=== PATIENT | female | born 1990 | race African-American/Black ===

== ENCOUNTER 2017-04-25 21:39 | Emergency (ER) | payer MEDICAID, OTHER ==
[~2017-04-25] VITALS: Ht 172.7 cm; Wt 81.6 kg
[~2017-04-25 21:39] MED LIST: ALBU8.5H5 INH; DICY10CA60 PO; HYDR-3498 PO; IBUP-1542 PO; ONDA4TAB35 PO
[2017-04-25 21:56] VITALS: Ht 172.7 cm; Wt 81.6 kg
[2017-04-25] MEDS ORDERED: morphine 4 MG/ML VIAL IV STA (22:43)
[2017-04-25] MEDS ORDERED: SOD CHLORIDE 0.9% 1,000 ML IV STA (22:43)
[2017-04-25] MEDS ORDERED: ONDANSETRON 4 MG INJ IV STA (22:43)
[2017-04-26 00:11] LABS: ADD SCAN DIFF NO
[2017-04-26] MEDS ORDERED: morphine 4 MG/ML VIAL IV STA (00:21)
[2017-04-26 00:22] LABS: ABNORMAL IP MESSAGE 1; BASOPHIL # 0.1 10^3/ul (0.0-0.1); BASOPHILS % 0.9 % (0.0-2.0); EOSINOPHILS # 0.1 10^3/ul (0.0-0.5); EOSINOPHILS % 1.7 % (0.0-7.0); HEMATOCRIT 27.2 % (37.0-47.0); HEMOGLOBIN 7.3 g/dl (12.0-16.0); LYMPHOCYTES # 2.8 10^3/ul (0.8-2.9); LYMPHOCYTES % 43.3 % (15.0-51.0); MEAN CORPUSCULAR HEMOGLOBIN 16.4 pg (29.0-33.0); MEAN CORPUSCULAR HGB CONC 26.8 g/dl (32.0-37.0); MEAN CORPUSCULAR VOLUME 61.3 fl (82.0-101.0); MONOCYTE # 0.4 10^3/ul (0.3-0.9); MONOCYTES % 6.5 % (0.0-11.0); NEUTROPHIL # 3.1 10^3/ul (1.6-7.5); NEUTROPHILS % 47.4 % (39.0-77.0); PLATELET COUNT 495 10^3/UL (140-415); RED BLOOD COUNT 4.44 10^6/ul (4.20-5.40); RED CELL DISTRIBUTION WIDTH 23.5 % (11.5-14.5); WHITE BLOOD COUNT 6.5 10^3/ul (4.8-10.8)
--- NOTE | 2017-04-26 00:31 | RADRPT ---
PROCEDURE: US Pelvis. CLINICAL INDICATION: Left lower quadrant pain TECHNIQUE: Multiple sonographic images of the pelvis were obtained utilizing a transabdominal only technique. The images were reviewed on a PACS workstation. COMPARISON: CT abdomen and pelvis 11/12/2015. Ultrasound 10/12/2015 FINDINGS: Uterus: Normal in size, contour and echogenicity with no evidence for myometrial masses. Size is est imated at 9.8 x 5.3 x 4.8 cm. Cervix: No abnormalities of significance are seen. Endometrium: Normal in thickness; 2.3 mm. Right ovary / adnexa: Not visualize compatible with the provided history of oophorectomy. Left ovary/adnexa: Normal in size estimated at 6 x 4.9 x 4 cm. No evidence for solid masses, normal blood flow on Doppler interrogation. Cyst within the ovary measures 3.4 x 3.4 x 3.1 cm, decreased i n size from the prior CT of 11/12/2015 at which time it measured 3.8 cm. Cul-de-sac: No evidence of free fluid. RPTAT:HJJR IMPRESSION: 1. Left ovarian cyst of approximately 3.4 cm has decreased in size from the prior CT of 11/12/2015 and the previous ultrasound of the of 10/12/2015. 2. No evidence of ovarian torsion. 3. Right ovary not visualize provided history of oophorectomy. 4. Unremarkable uterus and endometrium. Physician Valentine Date Time Electronically viewed and signed by Physician Valentine on 04/26/2017 00:31 /
--- NOTE | 2017-04-26 00:43 | ERD ---
ER Documentation Chief Complaint Date/Time DATE: 04/26/17 TIME: 00:40 Chief Complaint abd pain, left sided weakness, nausea HPI This is a 26-year-old female presents to the ER with severe left-sided abdominal pain that started this morning. Patient states that pain has gotten more severe as the day goes on. Pain is constant. It is nonradiating. She has not tried anything for the pain. Patient denies any fevers or chills. She does admit to black to brown vaginal discharge, which she noticed today. She denies any urinary frequency or dysuria. Patient denies any n/v/d. She denies any bloody stools. ROS 12 point review of systems was done, all negative except per HPI. Medications Home Meds Active Scripts Ibuprofen* (Motrin*) 600 Mg Tab, 600 MG PO Q6, #30 TAB Prov:NELY STEVENS 04/26/17 Docusate Sodium* (Colace*) 100 Mg Capsule, 100 MG PO TID, #30 CAP Prov:NELY STEVENS 04/26/17 Hydrocodone/Acetaminophen ([place] 5-325 Tablet) 1 Each Tablet, 1 TAB PO Q6H Y for PAIN, #20 TAB Prov:NELY STEVENS 04/26/17 Ferrous Sulfate (Iron) 325 Mg Capsule.er, 325 MG PO TID for 30 Days, CAP Prov:NELY STEVENS 04/26/17 Ibuprofen* (Motrin*) 600 Mg Tab, 600 MG PO BID, #30 TAB 0 Refills Prov:NANO PIERRE PA-C 11/12/15 Hydrocodone Bit-Acetaminophen* ([place]*) 5-325 Mg Tab, 1 TAB PO DAILY Y for PAIN , #15 TAB 0 Refills Prov:NANO PIERRE PA-C 11/12/15 Hydrocodone Bit-Acetaminophen* ([place]*) 5-325 Mg Tab, 1 TAB PO Q6 Y for PAIN, # 20 TAB Prov:JEANNE MEEK NP 10/12/15 Ondansetron Hcl* (Zofran* ODT) 4 mg -ODT Tab.disper, 4 MG PO Q6 Y for NAUSEA AND /OR VOMITING, #30 TAB Prov:JEANNE MEEK NP 10/11/15 Dicyclomine Hcl* (Bentyl*) 10 Mg Capsule, 10 MG PO QID, #30 CAP Prov:TRACIE MEEKGasper MANCINI ShyanneMatthew MAYA 10/11/15 Albuterol Sulfate* (Albuterol Sulfate* HFA) 8.5 Gm Hfa.aer.ad, 1-2 PUFF INH Q4 Y for SHORTNESS OF BREATH, #1 EA Prov:PIERRE EUGENE MD 08/26/15 Reported Medications [none] Unknown Strength No Conflict Check 10/11/15 Allergies Allergies: Coded Allergies: No Known Allergy (Verified , 08/26/15) PMhx/Soc History of Surgery: Yes ( section, ectopic removal) Anesthesia Reaction: No Hx Neurological Disorder: No Hx Respiratory Disorders: No Hx Cardiac Disorders: No Hx Psychiatric Problems: No Hx Miscellaneous Medical Probl: No Hx Alcohol Use: No Hx Substance Use: No Hx Tobacco Use: No Physical Exam Vitals Vital Signs Date Time Temp Pulse Resp B/P Pulse Ox O2 Delivery O2 Flow Rate FiO2 04/25/17 21:56 98.5 81 20 127/71 96 Physical Exam GENERAL:patient is in a moderate amount of distress secondary to pain HEENT: Atraumatic. CHEST: Clear to auscultation bilaterally. There are no rales, wheezes or rhonchi. HEART: Regular rate and rhythm. No murmurs, clicks, rubs or gallops. ABDOMEN: Soft and non distended, TTP in the left lower quadrant. Good bowel sounds. No rebound or guarding. No gross peritonitis. No gross organomegaly or masses. No Winkler sign or McBurney point tenderness. BACK: No midline or flank tenderness. NEURO: Alert and oriented. SKIN: There is no apparent rash or petechia. The skin is warm and dry. Result Diagram: 04/25/17 2330 04/25/17 233 Results 24 hrs Laboratory Tests Test 04/25/17 23:30 White Blood Count 6.510^3/ul Red Blood Count 4.4410^6/ul Hemoglobin 7.3g/dl Hematocrit 27.2% Mean Corpuscular Volume 61.3fl Mean Corpuscular Hemoglobin 16.4pg Mean Corpuscular Hemoglobin Concent 26.8g/dl Red Cell Distribution Width 23.5% Platelet Count 86937^3/UL Mean Platelet Volume fl Neutrophils % 47.4% Lymphocytes % 43.3% Monocytes % 6.5% Eosinophils % 1.7% Basophils % 0.9% Nucleated Red Blood Cells % 0.0/100WBC Neutrophils # 3.110^3/ul Lymphocytes # 2.810^3/ul Monocytes # 0.410^3/ul Eosinophils # 0.110^3/ul Basophils # 0.110^3/ul Nucleated Red Blood Cells # 0.010^3/ul Urine Color YELLOW Urine Clarity SLIGHTLY CLOUDY Urine pH 6.0 Urine Specific [place] 1.025 Urine Ketones NEGATIVEmg/dL Urine Nitrite NEGATIVEmg/dL Urine Bilirubin NEGATIVEmg/dL Urine Urobilinogen 1+mg/dL Urine Leukocyte Esterase NEGATIVELeu/ul Urine Microscopic RBC 1/HPF Urine Microscopic WBC 4/HPF Urine Squamous Epithelial Cells FEW/HPF Urine Bacteria FEW/HPF Urine Mucus MODERATE/HPF Urine Hemoglobin NEGATIVEmg/dL Urine Glucose NEGATIVEmg/dL Urine Total Protein NEGATIVEmg/dl Sodium Level 136mmol/L Potassium Level 3.8mmol/L Chloride Level 103mmol/L Carbon Dioxide Level 25mmol/L Anion Gap 12 Blood Urea Nitrogen 13mg/dl Creatinine 0.76mg/dl Glucose Level 92mg/dl Calcium Level 9.8mg/dl Total Bilirubin 0.0mg/dl Direct Bilirubin 0.00mg/dl Indirect Bilirubin 0.0mg/dl Aspartate Amino Transf (AST/SGOT) 23IU/L Alanine Aminotransferase (ALT/SGPT) 30IU/L Alkaline Phosphatase 60IU/L Total Protein 7.7g/dl Albumin 4.7g/dl Globulin 3.00g/dl Albumin/Globulin Ratio 1.56 Lipase 135U/L Current Medications Medications (Trade) Dose Ordered Sig/Carmen Route PRN Reason Start Time Stop Time Status Last Admin Dose Admin Sodium Chloride (NS) 1,000 ml @ 1,000 mls/hr Q1H STAT IV 04/25/17 22:43 04/25/17 23:42 DC 04/25/17 23:47 Morphine Sulfate (morphine) 6 mg ONCE STAT IV 04/25/17 22:43 04/25/17 22:45 DC 04/25/17 23:48 Ondansetron HCl (Zofran Inj) 4 mg ONCE STAT IV 04/25/17 22:43 04/25/17 22:45 DC 04/25/17 23:47 Morphine Sulfate (morphine) 4 mg ONCE STAT IV 04/26/17 00:21 04/26/17 00:24 DC 04/26/17 00:47 Diphenhydramine HCl (Benadryl) 25 mg ONCE ONCE IV 04/26/17 01:30 04/26/17 01:31 DC 04/26/17 01:23 Procedures/MDM This is a 26-year-old female presents to the ER for left lower quadrant abdominal pain. Patient was found to have a left ovarian cyst, with no evidence of ovarian torsion. There was also no evidence of acute intra- abdominal infection or pathology. There is no evidence of leukocytosis or significant electrolyte abnormality. I discussed laboratory findings of low hemoglobin to 7.3 with my supervising physician , patient does appear to have iron deficiency anemia and is stable for outpatient follow-up. She will be sent home with ibuprofen and [place] for her abdominal pain and she will be given iron for her anemia. Patient's vital signs are stable with no evidence of tachycardia or hypotension. Patient is not hypoxic in any respiratory distress. She has denied any chest pain or shortness of breath. Patient needs to follow-up with her PCP within 1-2 days and see an BIOMED TECH regarding her ovarian cysts. I shared my medical decision making with the patient's significant other and patient they both understand and agree with plan. Departure Diagnosis: Primary Impression: Abdominal pain Additional Impression: Anemia Anemia type: iron deficiency Iron deficiency anemia type: unspecified iron deficiency Qualified Code: D50.9 - Iron deficiency anemia, unspecified iron deficiency anemia type Condition: Stable NELY STEVENS Apr 26, 2017 00:43
[2017-04-26 00:45] LABS: ALBUMIN 4.7 g/dl (3.3-4.9); ALBUMIN/GLOBULIN RATIO 1.56; CALCIUM 9.8 mg/dl (8.4-10.2); CREATININE 0.76 mg/dl (0.44-1.00); POTASSIUM 3.8 mmol/L (3.5-5.1); TOTAL PROTEIN 7.7 g/dl (6.1-8.1)
--- NOTE | 2017-04-26 01:03 | RADRPT ---
PROCEDURE: CT abdomen and pelvis without contrast. CLINICAL INDICATION: Abdominal pain TECHNIQUE: CT scan of the abdomen and pelvis without contrast was performed. Sagittal and coronal reformatted images were obtained from the axial source images. CTDI = 23.33 mGy; DLP = 1462.12 mGy- cm COMPARISON: CT 11/12/2015 FINDINGS: Visualized lower thorax: The lung bases are clear. There is no evidence for pleural effusion. Liver, gallbladder, pancreas and spleen: The liver is top normal in size measuring 19 cm in greates t dimension with normal contour and attenuation. There is no evidence for a liver mass or ductal di latation. The gallbladder is contracted but otherwise unremarkable. No common bile duct abnormalit y is demonstrated. The pancreas is unremarkable. The spleen is top normal in size. Adrenal glands and genitourinary system: The adrenal glands are normal bilaterally. The kidneys are normal and size, contour and attenuation with no evidence for masses, calculi or hydronephrosis. P reviously seen left lower pole renal calculus is no longer present. Slightly lobulated contour to th e renal cortices is again noted scarring from prior infection unable to be excluded but the findings are unchanged The ureters are unremarkable. The urinary bladder is contracted and difficult to eval uate. The uterus is unremarkable. The left ovarian/adnexal cyst is again noted currently estimated at 4.4 x 3.9 cm (series 3 image 140) not significantly changed from the prior study. There is no e vidence of free fluid in the cul-de-sac. Gastrointestinal system: The stomach is normal in caliber with no abnormality of significance. The small bowel is normal in caliber with no ileus, obstruction or wall thickening. The appendix and s urrounding fat are within the limits of normal. The colon shows no evidence for wall thickening or acute abnormality. There is no evidence for colitis or diverticulitis. Peritoneum, retroperitoneum, lymph nodes and vessels: The abdominal aorta is normal in caliber. No pneumoperitoneum is present. The inferior vena cava is unremarkable. There is no evidence for ness opathy or mass. There is no ascites. Osseous structures and musculoskeletal findings: There is no fracture, lytic or blastic lesion. No muscular abnormality or soft tissue pathology is present. RPTAT:HJJR IMPRESSION: 1. Left ovarian/adnexal cyst not significantly changed from 11/12/2015 without associated free fluid . 2. Previously seen left lower pole renal calculus is no longer evident, slightly lobulated contour to the renal cortex bilaterally may reflect the sequela of prior scarring but is stable compared to the previous exam. 3. No evidence of appendicitis or acute intra-abdominal pathology. Physician Valentine Date Time Electronically viewed and signed by Dickson Thomason Physician on 04/26/2017 01:03 JR/
[2017-04-26 01:14] LABS: ADD UMIC NO; UR ASCORBIC ACID NEGATIVE (NEGATIVE); UR BACTERIA FEW /HPF (NONE SEEN); UR BILIRUBIN (Dip) NEGATIVE (NEGATIVE); UR BLOOD (Dip) NEGATIVE (NEGATIVE); UR CLARITY SLIGHTLY CLOUDY (CLEAR); UR COLOR YELLOW (YELLOW); UR GLUCOSE (Dip) NEGATIVE (NEGATIVE); UR KETONES (Dip) NEGATIVE (NEGATIVE); UR LEUKOCYTE ESTERASE (Dip) NEGATIVE Leu/ul (NEGATIVE); UR MUCUS MODERATE /HPF (NONE SEEN); UR NITRITE (Dip) NEGATIVE (NEGATIVE); UR RBC 1 /HPF (0-5); UR SPECIFIC GRAVITY (Dip) 1.025 (1.003-1.030); UR SQUAMOUS EPITHELIAL CELL FEW /HPF (FEW); UR TOTAL PROTEIN (Dip) NEGATIVE (NEGATIVE); UR UROBILINOGEN (Dip) 1+ mg/dL (NEGATIVE)
[2017-04-26] MEDS ORDERED: HYDR-906 PO (01:27)
[2017-04-26] MEDS ORDERED: FERR325C PO (01:27)
[2017-04-26] MEDS ORDERED: IBUP-1542 PO (01:28)
[2017-04-26] MEDS ORDERED: DOCU-144 PO (01:28)
[2017-04-26] MEDS ORDERED: DIPHENHYDRAMINE 50 MG INJ IV ONE (01:30)
[2017-04-26 01:54] VITALS: BP 121/63; PULSE 71; RESP 17; TEMP 98.3
== END 2017-04-26 01:55 | disposition home or self-care (01) ==
LOC: FTE 21:39
DX: R10.32 Left lower quadrant pain (principal); D50.9 Iron deficiency anemia, unspecified; N89.8 Other specified noninflammatory disorders of vagina
CPT/HCPCS: 36415; 74176; 76856; 80053; 81001; 81003; 83690; 85025; 96374; 96375; 96376; J1200; J2270; J2405; J7030; Z7502

== ENCOUNTER 2017-08-26 13:49 | Inpatient (IN) | payer MEDICAID, OTHER ==
[~2017-08-26] VITALS: Ht 175.3 cm; Wt 127.3 kg
[~2017-08-26 13:49] MED LIST changes: +DOCU-144 PO; +FERR325C PO; +HYDR-906 PO
[2017-08-26] MEDS ORDERED: ONDANSETRON 4 MG INJ IV STA ×3 (14:10→17:51)
[2017-08-26] MEDS ORDERED: SOD CHLORIDE 0.9% 1,000 ML IV STA (14:10)
[2017-08-26] MEDS ORDERED: morphine 4 MG/ML VIAL IV STA ×3 (14:10→17:48)
--- NOTE | 2017-08-26 14:17 | ERD ---
ER Documentation Chief Complaint Chief Complaint pelvic pain, hx of r. ovarian cyst (ROM EPSTEIN PA-C) HPI 27-year-old female with a history of iron deficiency anemia, a right-sided ovarian cyst, presents emergency department for complaints of right-sided lower abdominal pain which has been intermittent and gradually worsening over the past 3 days. Patient rates her pain currently at a constant sharp 10 out of 10 , worse when going to the bathroom or when pressure is applied to the area. She has associated dysuria, slight hematuria, nausea, vomiting, and fever since yesterday. Patient noted small amount of blood in her vomit. She denies diarrhea, vaginal bleeding, or vaginal discharge. She is attempted to treat her symptoms with Motrin with minimal improvement. She states she does not treat her iron deficiency anemia because she is unable to digest iron supplement. (ROM EPSTEIN PA-C) ROS All systems reviewed and are negative except as per history of present illness. (ROM EPSTEIN PA-C) Medications Home Meds Active Scripts Ibuprofen* (Motrin*) 600 Mg Tab, 600 MG PO Q6, #30 TAB Prov:NELY STEVENS 04/26/17 Docusate Sodium* (Colace*) 100 Mg Capsule, 100 MG PO TID, #30 CAP Prov:NELY STEVENS 04/26/17 Hydrocodone/Acetaminophen ([place] 5-325 Tablet) 1 Each Tablet, 1 TAB PO Q6H Y for PAIN, #20 TAB Prov:NELY STEVENS 04/26/17 Ferrous Sulfate (Iron) 325 Mg Capsule.er, 325 MG PO TID for 30 Days, CAP Prov:NELY STEVENS 04/26/17 Ibuprofen* (Motrin*) 600 Mg Tab, 600 MG PO BID, #30 TAB 0 Refills Prov:NANO PIERRE PA-C 11/12/15 Hydrocodone Bit-Acetaminophen* ([place]*) 5-325 Mg Tab, 1 TAB PO DAILY Y for PAIN , #15 TAB 0 Refills Prov:NANO PIERRE PA-C 11/12/15 Hydrocodone Bit-Acetaminophen* (Black*) 5-325 Mg Tab, 1 TAB PO Q6 Y for PAIN, # 20 TAB Prov:JEANNE MEEK NP 10/12/15 Ondansetron Hcl* (Zofran* ODT) 4 mg -ODT Tab.disper, 4 MG PO Q6 Y for NAUSEA AND /OR VOMITING, #30 TAB Prov:JEANNE MEEK NP 10/11/15 Dicyclomine Hcl* (Bentyl*) 10 Mg Capsule, 10 MG PO QID, #30 CAP Prov:JEANNE MEEK NP 10/11/15 Albuterol Sulfate* (Albuterol Sulfate* HFA) 8.5 Gm Hfa.aer.ad, 1-2 PUFF INH Q4 Y for SHORTNESS OF BREATH, #1 EA Prov:PIERRE EUGENE MD 08/26/15 Reported Medications [none] Unknown Strength No Conflict Check 10/11/15 Allergies Allergies: Coded Allergies: No Known Allergy (Verified , 08/26/15) PMhx/Soc History of Surgery: Yes ( section, ectopic removal) Anesthesia Reaction: No Hx Neurological Disorder: No Hx Respiratory Disorders: No Hx Cardiac Disorders: No Hx Psychiatric Problems: No Hx Miscellaneous Medical Probl: No Hx Alcohol Use: No Hx Substance Use: No Hx Tobacco Use: No (ROM EPSTEIN PA-C) Physical Exam Vitals Vital Signs Date Time Temp Pulse Resp B/P Pulse Ox O2 Delivery O2 Flow Rate FiO2 08/26/17 17:06 95 20 113/67 100 Room Air 08/26/17 16:09 Nasal Cannula 2 08/26/17 13:57 101.7 136 20 144/76 100 (JOHNNIE MONTANO DO) Physical Exam Const: Developed, well-nourished, in moderate distress Head: Atraumatic Eyes: Normal Conjunctiva ENT: Normal External Ears, Nose and Mouth. Neck: Full range of motion..~ No meningismus. Resp: Clear to auscultation bilaterally Cardio: Regular rate and rhythm, no murmurs Abd: Soft, Normal bowel sounds. Positive right lower quadrant tenderness to palpation. Positive rebound tenderness. Negative Winkler sign. No peritoneal signs. Skin: No petechiae or rashes Back: No midline or flank tenderness Ext: No cyanosis, or edema Neur: Awake and alert Psych: Normal Mood and Affect (ROM EPSTEIN PA-C) Result Diagram: 08/26/17 14408/26/17 1440 Results 24 hrs Laboratory Tests Test 08/26/17 12:06 08/26/17 14:40 08/26/17 16:00 Urine Color JENNIE Urine Clarity CLOUDY Urine pH 5.0 Urine Specific [place] 1.020 Urine Ketones NEGATIVEmg/dL Urine Nitrite NEGATIVEmg/dL Urine Bilirubin NEGATIVEmg/dL Urine Urobilinogen 2+mg/dL Urine Leukocyte Esterase NEGATIVELeu/ul Urine Microscopic RBC 5/HPF Urine Microscopic WBC 24/HPF Urine Squamous Epithelial Cells MODERATE/HPF Urine Hyaline Casts FEW/HPF Urine Mucus MANY/HPF Urine Hemoglobin NEGATIVEmg/dL Urine Glucose NEGATIVEmg/dL Urine Total Protein 2+mg/dl White Blood Count 20.110^3/ul Red Blood Count 4.3410^6/ul Hemoglobin 6.7g/dl Hematocrit 25.6% Mean Corpuscular Volume 59.0fl Mean Corpuscular Hemoglobin 15.4pg Mean Corpuscular Hemoglobin Concent 26.2g/dl Red Cell Distribution Width 21.0% Platelet Count 22758^3/UL Mean Platelet Volume 10.4fl Neutrophils % % Segmented Neutrophils % (Manual) 90% Lymphocytes % % Lymphocytes % (Manual) 8% Monocytes % % Monocytes % (Manual) 1% Eosinophils % % Eosinophils % (Manual) 1% Basophils % % Nucleated Red Blood Cells % 0.0/100WBC Neutrophils # 10^3/ul Absolute Lymphocytes (Manual) 1.610^3/ul Lymphocytes # 10^3/ul Monocytes # 10^3/ul Absolute Monocytes (Manual) 0.210^3/ul Eosinophils # 10^3/ul Basophils # 10^3/ul Nucleated Red Blood Cells # 10^3/ul Platelet Estimate NORMAL Hypochromasia 2+ Poikilocytosis 1+ Anisocytosis 3+ Microcytosis 3+ Prothrombin Time 15.3Sec Prothrombin Time Ratio 1.2 INR International Normalized Ratio 1.20 Activated Partial Thromboplast Time 35.4Sec Sodium Level 140mmol/L Potassium Level 3.1mmol/L Chloride Level 100mmol/L Carbon Dioxide Level 24mmol/L Anion Gap 19 Blood Urea Nitrogen 8mg/dl Creatinine 0.91mg/dl Glucose Level 145mg/dl Lactic Acid Level 3.3mmol/L Calcium Level 8.7mg/dl Total Bilirubin 0.6mg/dl Direct Bilirubin 0.00mg/dl Indirect Bilirubin 0.6mg/dl Aspartate Amino Transf (AST/SGOT) 30IU/L Alanine Aminotransferase (ALT/SGPT) 27IU/L Alkaline Phosphatase 78IU/L Total Protein 8.4g/dl Albumin 4.2g/dl Globulin 4.20g/dl Albumin/Globulin Ratio 1.00 Lipase 34U/L Troponin I < 0.012ng/ml Current Medications Medications (Trade) Dose Ordered Sig/Carmen Route PRN Reason Start Time Stop Time Status Last Admin Dose Admin Sodium Chloride (NS) 1,000 ml @ 1,000 mls/hr Q1H STAT IV 08/26/17 14:10 08/26/17 15:09 DC 08/26/17 14:31 Morphine Sulfate (morphine) 4 mg ONCE STAT IV 08/26/17 14:10 08/26/17 14:13 DC 08/26/17 14:31 Ondansetron HCl (Zofran Inj) 4 mg ONCE STAT IV 08/26/17 14:10 08/26/17 14:13 DC 08/26/17 14:31 Acetaminophen (Tylenol Tab) 650 mg ONCE ONCE PO 08/26/17 14:30 08/26/17 14:31 DC 08/26/17 14:31 Morphine Sulfate (morphine) 4 mg ONCE STAT IV 08/26/17 15:26 08/26/17 15:27 DC 08/26/17 15:39 Ondansetron HCl (Zofran Inj) 4 mg ONCE STAT IV 08/26/17 15:26 08/26/17 15:27 DC 08/26/17 15:39 Sodium Chloride 3950 ml 3,950 ml BOLUS OVER 2 HOURS STAT IV* 08/26/17 15:31 08/26/17 15:34 DC 08/26/17 15:40 Ceftriaxone Sodium (Rocephin) 50 ml @ 100 mls/hr ONCE STAT IVPB 08/26/17 15:31 08/26/17 16:00 DC 08/26/17 15:40 IV Flush 10 ml 10 ml STK-MED ONCE .ROUTE 08/26/17 15:49 08/26/17 15:50 DC 08/26/17 16:16 Sodium Chloride (NS) 100 ml @ ud STK-MED ONCE .ROUTE 08/26/17 15:49 08/26/17 15:50 DC 08/26/17 16:17 Iohexol 150 ml 150 ml STK-MED ONCE .ROUTE 08/26/17 15:49 08/26/17 15:50 DC 08/26/17 16:17 Metronidazole (Flagyl 500 Mg (Pmx)) 100 ml @ 100 mls/hr ONCE ONCE IVPB 08/26/17 17:30 08/26/17 18:29 DC 08/26/17 17:56 Morphine Sulfate (morphine) 4 mg ONCE STAT IV 08/26/17 17:48 08/26/17 17:49 DC 08/26/17 17:56 Ondansetron HCl (Zofran Inj) 4 mg ONCE STAT IV 08/26/17 17:51 08/26/17 17:53 DC 08/26/17 18:06 (JOHNNIE MONTANO DO) Procedures/MDM This is an 27-year-old female with a history of iron deficiency anemia and right -sided ovarian cyst who presents emergency department for complaint severe right lower quadrant abdominal pain with associated fever and dysuria. Upon arrival patient in moderate discomfort and hunched over due to pain. Physical exam with evidence of marked right lower quadrant tenderness to palpation and tenderness. Upon arrival, patient tachycardic 136 bpm and febrile 101.7. She received IV Rocephin and fluid resuscitation per sepsis protocol while in the emergency department. CBC with evidence of leukocytosis and hemoglobin measured at 6.7 Lactic acid measured at 3.3 Patient case discussed with Dr. Montano who agreed with plan to transfer to the main emergency department pending admission. (ROM EPSTEIN PA-C) I cared for this patient with the PA. Diagnosis of sepsis was not mde until 110 minutes after patient's arrival because of wait times. She is septic secondary to possible ruptured appendicitis which seems likely due to the nature of the inflammation and location. Is also fits with her symptoms. I took over the case and completed the septic workup and gave cefepime and Flagyl. Also increased the amount of fluid she was receiving. Unstable vital signs then improved greatly. Also she needs more morphine and Zofran for recurrence of pain and nausea. Also has very low hemoglobin is going to be transfused. I have ordered this transfusion. Spoke with Dr. Adamson agrees to admit the patient .. I spoke with Dr. Cantrell he will be on consult to surgically manage this patient. Critical care time 35 minutes: This includes multiple visits to the bedside to reassess status, treatment of unstable vital signs, management of sepsis with careful fluid administration and antibiotic selection, review of chart, discussion with admitting doctor, surgeon, patient and patient's boyfriend. This does not include any billable procedures. (JOHNNIE MONTANO DO) Departure Diagnosis: Primary Impression: Abdominal pain Abdominal location: right lower quadrant Qualified Code: R10.31 - Right lower quadrant abdominal pain Additional Impressions: Fever Fever type: unspecified Qualified Code: R50.9 - Fever, unspecified fever cause Nausea & vomiting Vomiting type: unspecified Vomiting Intractability: unspecified Qualified Code: R11.2 - Nausea and vomiting, intractability of vomiting not specified, unspecified vomiting type Acute cecitis with rupture of appendix Sepsis Condition: Serious ROM EPSTEIN PA-C Aug 26, 2017 14:17 JOHNNIE MONTANO DO Aug 26, 2017 18:03 Fever type: unspecified Qualified Code: R50.9 - Fever, unspecified fever cause Nausea & vomiting Vomiting type: unspecified Vomiting Intractability: unspecified Qualified Code: R11.2 - Nausea and vomiting, intractability of vomiting not specified, unspecified vomiting type Acute cecitis with rupture of appendix Sepsis ROM EPSTEIN PA-C Aug 26, 2017 14:17 JOHNNIE MONTANO DO Aug 26, 2017 18:03
[2017-08-26] MEDS ORDERED: ACETAMINOPHEN 325 MG TAB PO ONE (14:30)
[2017-08-26 15:01] LABS: ABNORMAL IP MESSAGE 1; HEMATOCRIT 25.6 % (37.0-47.0); MEAN CORPUSCULAR HEMOGLOBIN 15.4 pg (29.0-33.0); MEAN CORPUSCULAR HGB CONC 26.2 g/dl (32.0-37.0); PLATELET COUNT 417 10^3/UL (140-415); RED BLOOD COUNT 4.34 10^6/ul (4.20-5.40); WHITE BLOOD COUNT 20.1 10^3/ul (4.8-10.8)
[2017-08-26 15:02] LABS: ADD UMIC YES; UR ASCORBIC ACID NEGATIVE (NEGATIVE); UR BILIRUBIN (Dip) NEGATIVE (NEGATIVE); UR BLOOD (Dip) NEGATIVE (NEGATIVE); UR CLARITY CLOUDY (CLEAR); UR COLOR AMBER (YELLOW); UR GLUCOSE (Dip) NEGATIVE (NEGATIVE); UR KETONES (Dip) NEGATIVE (NEGATIVE); UR LEUKOCYTE ESTERASE (Dip) NEGATIVE Leu/ul (NEGATIVE); UR MUCUS MANY /HPF (NONE SEEN); UR NITRITE (Dip) NEGATIVE (NEGATIVE); UR RBC 5 /HPF (0-5); UR SQUAMOUS EPITHELIAL CELL MODERATE /HPF (FEW); UR TOTAL PROTEIN (Dip) 2+ mg/dl (NEGATIVE); UR UROBILINOGEN (Dip) 2+ mg/dL (NEGATIVE)
[2017-08-26 15:06] LABS: MEAN PLATELET VOLUME 10.4 fl (7.4-10.4); POSITIVE DIFF @See below
[2017-08-26 15:08] LABS: HEMOGLOBIN 6.7 g/dl (12.0-16.0)
[2017-08-26 15:15] LABS: INR 1.2; PROTIME 15.3 Sec (12.2-14.2); PT RATIO 1.2
[2017-08-26 15:16] LABS: PARTIAL THROMBOPLASTIN TIME 35.4 Sec (25.0-35.0)
[2017-08-26 15:22] LABS: ALBUMIN 4.2 g/dl (3.3-4.9); BILIRUBIN,INDIRECT 0.6 mg/dl (0-1.1); BILIRUBIN,TOTAL 0.6 mg/dl (0.2-1.3); CALCIUM 8.7 mg/dl (8.4-10.2); CREATININE 0.91 mg/dl (0.44-1.00); POTASSIUM 3.1 mmol/L (3.5-5.1); TOTAL PROTEIN 8.4 g/dl (6.1-8.1)
[2017-08-26] MEDS ORDERED: SODIUM CHLORIDE 0.9% 1L BAG IV* STA (15:31)
[2017-08-26] MEDS ORDERED: CEFTRIAXONE 1 GM/50 ML (PMX) 50 ML IVPB STA (15:31)
[2017-08-26] MEDS ORDERED: IOHEXOL 300MG/ML 150 ML BTL ONE (15:49)
[2017-08-26] MEDS ORDERED: SOD CHLORIDE 0.9% 100 ML ONE (15:49)
[2017-08-26 15:51] LABS: ANISOCYTOSIS 3+ (0-0); EOSINOPHILS % (M) 1 % (0-7); HYPOCHROMASIA 2+ (0-0); MICROCYTOSIS 3+ (0-0); MONOCYTES % (M) 1 % (0-11); PLATELET ESTIMATE NORMAL; POIKILOCYTOSIS 1+ (0-0)
--- NOTE | 2017-08-26 16:49 | RADRPT ---
PROCEDURE: CT Abdomen and Pelvis with Contrast CLINICAL INDICATION: Abdominal pain, History of ovarian cysts, TECHNIQUE: Transaxial images were obtained through the abdomen and pelvis on a multi-slice scanner following the intravenous administration of 90 ml of I Omnipaque-300 contrast. No oral contrast summers d previously been given. Sagittal and coronal re-formations were subsequently reconstructed. One or more of the following dose reduction techniques were used: - Automated exposure control. - Adjustment of the mA and/or kV according to patient size. - Use of iterative reconstruction technique. Radiation dose: CTDIvol = 22.95 mGy; DLP = 1465.83 mGy-cm. COMPARISON: 04/26/2017 FINDINGS: Lung bases: The visualized lung bases appear unremarkable. Liver: The liver remains upper normal in size and appears mildly fatty infiltrated with no focal les ion. Gallbladder: The gallbladder lumen appears heterogeneous suspicious for cholelithiasis. The wall is not thickened. Bile ducts: The intra and extrahepatic bile ducts are normal in caliber. Pancreas: Appears normal with no mass or inflammation evident. Spleen: The spleen is mildly enlarged. Adrenals: Normal with no mass identified. Kidneys, ureters and bladder: The renal contours are lobulated compatible renal cortical scarring. T he kidneys are otherwise unremarkable without evidence of urinary outflow obstruction. The ureters a ppear unremarkable. The bladder is suboptimally distended and the wall appears diffusely thickened. Reproductive organs: The uterus deviates slightly to the left of midline. A 3.9 cm left adnexal cyst is again evident. Stomach, bowel, and mesentery: The stomach appears unremarkable. There is extensive inflammatory edward nge seen involving the omentum and mesenteric fat within the pelvis surrounding segments of small sheila wel and extending to the cecum. There is no evidence of bowel obstruction. Appendix: The vermiform appendix is not discretely identified but may be obscured by the inflammator y changes seen about the cecum and pelvis. Peritoneum: There is a small amount of free intraperitoneal fluid seen in the cul-de-sac. There is a n extraluminal bubble of air seen within the left cul-de-sac. There is a small fat containing umbili anika hernia. Aorta: Normal in caliber with no aneurysmal dilatation. IVC: Unremarkable. Lymph nodes: Mesenteric nodes are seen within the right lower quadrant up to 1 cm in short diameter. Osseous structures: The osseous elements appear intact. IMPRESSION: 1. Since the previous CT of 04/26/2017, there has been interval development of considerable inflamm atory change involving the omentum and mesenteric fat surrounding segments of small bowel in the pel vis extending from the cecum. The vermiform appendix is no longer discretely evident. Ruptured appen dicitis cannot be excluded. There is no evidence of bowel obstruction. 2. There is no evidence of urinary outflow obstruction but there are again lobulated contours to th e kidneys compatible with cortical scarring. Although less than optimally distended, the bladder wal l appears thickened and may also be inflamed. 3. There is again 3.9 cm left adnexal cyst is again evident. 4. There is a small amount of free intraperitoneal fluid and there is a probable of extraluminal ai r which has developed in the left cul-de-sac region. 5. Several mesenteric nodes up to 1 cm in diameter are seen within the right lower quadrant. 6. Possible cholelithiasis without bile duct dilatation or pancreatic pathology. This could be conf irmed by means of sonography. 7. Mildly fatty infiltrated liver and mild splenomegaly, unchanged. Findings suspicious for a ruptured appendicitis with inflammatory changes seen in the pelvis and mes enteric adenopathy within the right lower quadrant were telephoned by Tomas Mcdermott MD to Dr. Jarocho albert on 08/26/2017 at 1640 hours. Physician Rachel Date Time Electronically viewed and signed by Physician Rachel on 08/26/2017 16:49 /
[2017-08-26] MEDS ORDERED: metroNIDAZOLE 500 MG/NS (PMX) 100 ML IVPB ONE (17:30)
[2017-08-26] MEDS ORDERED: ONDANSETRON 4 MG INJ IV PRN (18:00)
[2017-08-26] MEDS ORDERED: ACETAMINOPHEN 325 MG TAB PO PRN (18:00)
[2017-08-26] MEDS ORDERED: DIPHENHYDRAMINE 50 MG INJ IV ONE (18:30)
[2017-08-26 20:00] VITALS: TEMP 98.6
[2017-08-26] MEDS ORDERED: VANCOMYCIN IV PER PHARMACY XX SCH (21:30)
[2017-08-26] MEDS: SOD CHLORIDE 0.9% 1,000 ML IV SCH (21:30)
[2017-08-26] MEDS: ONDANSETRON 4 MG INJ IV PRN (21:44)
[2017-08-26] MEDS: morphine 2 MG INJ IV PRN (21:45)
[2017-08-26 21:50] VITALS: Ht 175.3 cm; Wt 127.3 kg
[2017-08-26 22:45] VITALS: BP 130/60; RESP 21
[2017-08-26 22:59] LABS: IRON 15 ug/dl (35-150)
[2017-08-26] MEDS ORDERED: VANCOMYCIN 2 GM in SOD CHLORIDE 0.9% 500 ML IVPB ONE (23:00)
[2017-08-26 23:09] LABS: TOTAL IRON BINDING CAPACITY 354 ug/dl (241-421)
[2017-08-26] MEDS: ACETAMINOPHEN 325 MG TAB PO PRN (23:20)
--- NOTE | 2017-08-26 23:53 | QN ---
Documentation Comment H&P dict a/p 1. gi: probable ruptured appy, await surgical opinon, dr hernadez contacted by er 2. fe deficient anemia MICHELLE ENCISO MD Aug 26, 2017 23:53
[2017-08-27 00:06] LABS: FOLATE 6.7 ng/ml (2.8-20.0)
[2017-08-27] MEDS: PIPER-TAZO 3.375 GM IV (PMX) 50 ML IVPB SCH ×4 (00:14→18:00)
[2017-08-27 02:33] VITALS: BP 118/55; RESP 20
--- NOTE | 2017-08-27 02:38 | HP ---
DATE OF ADMISSION: 08/26/2017 CHIEF COMPLAINT: Abdominal pain. HISTORY OF PRESENT ILLNESS: The patient presents to the emergency room at [facility] with a 2-day history of right lower quadrant abdominal pain which is progressively worsening. This was a ssociated with some fevers, some nausea, 1 episode of vomiting, no diarrhea, no constipation. The p atient states this began on Saturday though she has had similar pain in the past which she has attri buted to ovarian cyst and felt that this was more of the same. However, the pain worsened and she b ecame concerned causing her to come here to the emergency room. PAST MEDICAL HISTORY: Significant for iron deficiency anemia as well as ovarian cyst. MEDICATIONS: As an outpatient, the patient reports she is not taking any, but does have iron, albut samara, [place] and Bentyl listed. ALLERGIES: NO KNOWN DRUG ALLERGIES. SOCIAL HISTORY: The patient lives at home in [place] with her and children, works as a [employer] . Denies tobacco and illicit drug use. Rare alcohol though she states the last drink was . FAMILY HISTORY: Noncontributory. REVIEW OF SYSTEMS: Five systems reviewed and found not to be revealing. PHYSICAL EXAMINATION: VITAL SIGNS: Blood pressure 130/60, pulse rate 98, respirations 20, temperature 97.8, satting 100% on room air. GENERAL: Pleasant woman, no acute distress, alert and oriented x3. HEENT: Normocephalic, atraumatic without evident scleral icterus, perioral cyanosis. Mucous membra glenda are moist. NECK: Soft and supple without masses. No evidence of jugular venous distention or carotid bruits. CHEST: Clear to auscultation and percussion bilaterally. HEART: Regular rate and rhythm, S1-S2, no added sounds. ABDOMEN: Soft, nontender, nondistended without palpable hepatosplenomegaly. EXTREMITIES: Without clubbing, cyanosis or edema. SKIN: Without rashes. NEUROLOGIC: Grossly intact. LABORATORY STUDIES: Reveal a hemoglobin of 6.7 g/dL, white count of 20,000, platelets of 417,000. INR is 1.2. Sodium 140, potassium 3.1, chloride 100, bicarbonate 24, BUN 8, creatinine 0.9, glucose 145. Liver function tests are within normal limits. UA shows 24 WBCs with negative esterase, nega tive nitrite. CT scan of abdomen and pelvis reveals an area in the right lower quadrant of consider able inflammatory change involving the omentum and mesenteric fat, segments of small bowel in the pe lvis extending from the cecum. Radiologist hypothesizes this is secondary to ruptured appendicitis. ASSESSMENT AND PLAN: 1. Gastrointestinal: The patient with probable ruptured appendicitis and inflammatory changes in t he right lower quadrant. Continue antibiotics. Await surgical opinion. 2. Iron deficiency anemia, most likely due to menorrhagia. The patient has requested to receive 2 units of packed red blood cells. 3. Prophylaxis with SCDs. Dictated By: MICHELLE ENCISO MD RER/NTS Conf#: [id number] DID#: [id number]
[2017-08-27] MEDS: SOD CHLORIDE 0.9% 1,000 ML IV SCH (04:26)
[2017-08-27] MEDS: ONDANSETRON 4 MG INJ IV PRN ×2 (07:00→11:17)
[2017-08-27] MEDS: morphine 2 MG INJ IV PRN ×2 (07:00→10:34)
[2017-08-27 08:04] VITALS: BP 119/65; RESP 18
[2017-08-27] MEDS: VANCOMYCIN 1 GM in NS 250 ML IVPB SCH (08:29)
[2017-08-27] MEDS: FERROUS SULFATE (EC) 325 MG TAB PO SCH ×2 (08:30→09:00)
[2017-08-27] MEDS: ACETAMINOPHEN 325 MG TAB PO PRN (08:30)
[2017-08-27 11:14] LABS: WHITE BLOOD COUNT 15.1 10^3/ul (4.8-10.8)
[2017-08-27 11:15] LABS: ABNORMAL IP MESSAGE 1; BASOPHILS % 0.3 % (0.0-2.0); EOSINOPHILS # 0.1 10^3/ul (0.0-0.5); EOSINOPHILS % 0.5 % (0.0-7.0); HEMATOCRIT 22.4 % (37.0-47.0); LYMPHOCYTES # 1.7 10^3/ul (0.8-2.9); LYMPHOCYTES % 10.9 % (15.0-51.0); MEAN CORPUSCULAR HEMOGLOBIN 16.6 pg (29.0-33.0); MEAN CORPUSCULAR HGB CONC 27.7 g/dl (32.0-37.0); MEAN CORPUSCULAR VOLUME 60.1 fl (82.0-101.0); MEAN PLATELET VOLUME 10.7 fl (7.4-10.4); MONOCYTE # 1.2 10^3/ul (0.3-0.9); MONOCYTES % 7.6 % (0.0-11.0); NEUTROPHILS % 79.8 % (39.0-77.0); PLATELET COUNT 329 10^3/UL (140-415); RED BLOOD COUNT 3.73 10^6/ul (4.20-5.40); RED CELL DISTRIBUTION WIDTH 21.6 % (11.5-14.5)
[2017-08-27 11:20] LABS: HEMOGLOBIN 6.2 g/dl (12.0-16.0); POSITIVE DIFF @See below
[2017-08-27 11:31] LABS: INR 1.21; PROTIME 15.4 Sec (12.2-14.2); PT RATIO 1.2
[2017-08-27 11:32] LABS: PARTIAL THROMBOPLASTIN TIME 38.4 Sec (25.0-35.0)
[2017-08-27 11:34] LABS: ALBUMIN 2.8 g/dl (3.3-4.9); ALBUMIN/GLOBULIN RATIO 0.82; BILIRUBIN,INDIRECT 0.4 mg/dl (0-1.1); BILIRUBIN,TOTAL 0.4 mg/dl (0.2-1.3); CALCIUM 7.9 mg/dl (8.4-10.2); CREATININE 0.81 mg/dl (0.44-1.00); POTASSIUM 3.3 mmol/L (3.5-5.1); TOTAL PROTEIN 6.2 g/dl (6.1-8.1)
--- NOTE | 2017-08-27 13:12 | PN ---
Date/Time of Note Date/Time of Note DATE: 08/27/17 TIME: 13:06 Assessment/Plan VTE Prophylaxis VTE Prophylaxis Intervention: SCD's Lines/Catheters IV Catheter Type (from Nrsg): Peripheral IV Assessment/Plan Assessment/Plan 27-year-old female with 1. Acute appendicitis, ruptured, on IV antibiotics and IV fluids, n.p.o. except for meds. Patient has been evaluated by Dr. Cantrell from general surgery. Plan to place a drain either by IR or in the OR by Dr. Cantrell Pain control. 2. Acute on chronic anemia, iron deficient, will put her on IV iron, patient reports that she has not been able to tolerate the p.o. iron. She is getting 2 more units of packed red blood cells therefore a total of 4 units. Monitor for any further acute bleeding. She reports menometrorrhagia but currently only spotting. We will put patient on Ferrlicit/IV iron while inpatient. Prophylaxis: Pepcid for GI prophylaxis, SCDs for DVT prophylaxis Disposition: Additional blood transfusion, drain placement by IR versus in OR for ruptured appendicitis, close monitoring. Subjective 24 Hr Interval Summary Free Text/Dictation Patient with ongoing severe abdominal pain, mostly right-sided, febrile this morning, on IV antibiotics and IV fluids, n.p.o. except for medications. General surgery has evaluated patient, plan to put train in either by IR or in OR with general surgery. Continue pain control. Patient is also significantly anemic, she reports chronic anemia secondary to menometrorrhagia and has required blood transfusion in the past. Exam/Review of Systems Vital Signs Vitals Vital Signs Date Time Temp Pulse Resp B/P Pulse Ox O2 Delivery O2 Flow Rate FiO2 08/27/17 11:21 99.5 08/27/17 08:04 102 18 119/65 99 08/26/17 20:00 Room Air 08/26/17 16:09 2 Intake and Output 08/26/17 08/26/17 08/27/17 15:00 23:00 07:00 Intake Total 662 ml Balance 662 ml Exam Constitutional: alert, obese, oriented, well developed Respiratory: clear to auscultation, normal air movement Cardiovascular: nl pulses, regular rate and rhythm Gastrointestinal: soft, tender (Diffuse tenderness) Musculoskeletal: nl extremities to inspection, nl gait and stance Extremities: normal pulses, other (No edema, clubbing or cyanosis) Neurological: MILITARY PERSONNEL SPECIALIST II-XII intact, nl mental status, nl speech, nl strength Results Result Diagram: 08/27/17 1052 08/27/17 1052 Results 24 hrs Laboratory Tests Test 08/26/17 14:40 08/26/17 16:00 08/26/17 18:50 08/26/17 22:16 White Blood Count 20.1 #H Red Blood Count 4.34 Hemoglobin 6.7 *L Hematocrit 25.6 L Mean Corpuscular Volume 59.0 L Mean Corpuscular Hemoglobin 15.4 L Mean Corpuscular Hemoglobin Concent 26.2 L Red Cell Distribution Width 21.0 H Platelet Count 417 H Mean Platelet Volume 10.4 # Neutrophils % Segmented Neutrophils % (Manual) 90 H Lymphocytes % Lymphocytes % (Manual) 8 L Monocytes % Monocytes % (Manual) 1 Eosinophils % Eosinophils % (Manual) 1 Basophils % Nucleated Red Blood Cells % 0.0 Neutrophils # Absolute Lymphocytes (Manual) 1.6 Lymphocytes # Monocytes # Absolute Monocytes (Manual) 0.2 L Eosinophils # Basophils # Nucleated Red Blood Cells # Platelet Estimate NORMAL Hypochromasia 2+ Poikilocytosis 1+ Anisocytosis 3+ Microcytosis 3+ Prothrombin Time 15.3 H Prothrombin Time Ratio 1.2 INR International Normalized Ratio 1.20 Activated Partial Thromboplast Time 35.4 H Sodium Level 140 Potassium Level 3.1 L Chloride Level 100 Carbon Dioxide Level 24 Anion Gap 19 H Blood Urea Nitrogen 8 Creatinine 0.91 Glucose Level 145 Lactic Acid Level 3.3 *H 1.8 1.2 Calcium Level 8.7 Total Bilirubin 0.6 Direct Bilirubin 0.00 Indirect Bilirubin 0.6 Aspartate Amino Transf (AST/SGOT) 30 Alanine Aminotransferase (ALT/SGPT) 27 Alkaline Phosphatase 78 Total Protein 8.4 H Albumin 4.2 Globulin 4.20 H Albumin/Globulin Ratio 1.00 Lipase 34 Troponin I < 0.012 Iron Level 15 L Total Iron Binding Capacity 354 Percent Iron Saturation 4 L Vitamin B12 Level 548 Folate 6.7 Test 08/27/17 06:40 08/27/17 10:52 Lab Scanned Report BLOOD TRANSFUSION White Blood Count 15.1 #H Red Blood Count 3.73 L Hemoglobin 6.2 *L Hematocrit 22.4 L Mean Corpuscular Volume 60.1 L Mean Corpuscular Hemoglobin 16.6 L Mean Corpuscular Hemoglobin Concent 27.7 L Red Cell Distribution Width 21.6 H Platelet Count 329 # Mean Platelet Volume 10.7 H Neutrophils % 79.8 H Lymphocytes % 10.9 L Monocytes % 7.6 Eosinophils % 0.5 Basophils % 0.3 Nucleated Red Blood Cells % 0.0 Neutrophils # 12.0 H Lymphocytes # 1.7 Monocytes # 1.2 H Eosinophils # 0.1 Basophils # 0.0 Nucleated Red Blood Cells # 0.0 Prothrombin Time 15.4 H Prothrombin Time Ratio 1.2 INR International Normalized Ratio 1.21 Activated Partial Thromboplast Time 38.4 H Sodium Level 142 Potassium Level 3.3 L Chloride Level 107 Carbon Dioxide Level 26 Anion Gap 12 # Blood Urea Nitrogen 7 Creatinine 0.81 Glucose Level 108 Lactic Acid Level 1.7 Calcium Level 7.9 L Total Bilirubin 0.4 Direct Bilirubin 0.00 Indirect Bilirubin 0.4 Aspartate Amino Transf (AST/SGOT) 21 Alanine Aminotransferase (ALT/SGPT) 28 Alkaline Phosphatase 70 Total Protein 6.2 # Albumin 2.8 #L Globulin 3.40 H Albumin/Globulin Ratio 0.82 Lipase 53 Medications Medications Current Medications Ferrous Sulfate 325 mg 325 mg TID PO ; Start 08/27/17 at 09:00 Piperacillin Sod/ Tazobactam Sod (Zosyn 3.375gm/ 50 ml (Pmx)) 50 ml @ 100 mls/ hr Q6 IVPB Last administered on 08/27/17 05:38; Admin Dose 100 MLS/HR; Start 08/27/17 at 00:00 Acetaminophen (Tylenol Tab) 650 mg Q4H PRN PO PAIN AND OR ELEVATED TEMP Last administered on 08/27/17 08:30; Admin Dose 650 MG; Start 08/26/17 at 21:30 Ondansetron HCl (Zofran Inj) 4 mg Q4H PRN IV NAUSEA AND/OR VOMITING Last administered on 08/27/17 11:17; Admin Dose 4 MG; Start 08/26/17 at 21:30 Morphine Sulfate 2 mg 2 mg Q2H PRN IV pain Last administered on 08/27/17 10: 34; Admin Dose 2 MG; Start 08/26/17 at 21:30 Vancomycin HCl (Vancocin) 250 ml @ 125 mls/hr Q8H IVPB Last administered on 08:29; Admin Dose 125 MLS/HR; Start 08/27/17 at 08:00 Miscellaneous Information 1 ONCE ONCE XX ; Start 08/27/17 at 23:00; Stop at 23:01 Potassium Chloride/Sodium Chloride (KCl/NS) 1,020 ml @ 125 mls/hr Q8H10M IV ; Start 08/27/17 at 13:30; Status UNV PJ PAULINO Aug 27, 2017 13:12
[2017-08-27 13:23] LABS: PHOSPHORUS 2.5 mg/dl (2.5-4.9)
--- NOTE | 2017-08-27 13:58 | HPN ---
Date/Time of Note Date/Time of Note DATE: 08/27/17 TIME: 13:58 Interval H&P Admission Note Pt. seen H&P reviewed: No system changes Pt. seen H&P reviewed. No system changes (I attest that I have seen and examined the patient and reviewed the operation in detail, as well as its risks , benefits and alternatives of the operation). I attest that I have seen and examined the patient and reviewed in detail the operation, and its associated risks, benefits and alternative. I have answered all the patient's questions to the best of my ability and the patient wishes to proceed. Please refer to rest of electronic medical record for additional updates. MINESH RUSSELL M.D. Aug 27, 2017 13:58
--- NOTE | 2017-08-27 13:58 | CONS ---
Date/Time of Note Date/Time of Note DATE: 08/27/17 TIME: 13:58 Assessment/Plan Assessment/Plan Additional Assessment/Plan [facility] INPATIENT CONSULTATION NOTE DATE OF SERVICE: 08/27/2017 PLACE OF SERVICE: [facility], second floor [facility] ASSESSMENT AND PLAN: A very-pleasant 27-year-old lady with comorbidity of BMI 41.4 and prior C-sections, presenting with a picture concerning for possible ruptured appendicitis. No drainable abscess noted on CT scan per my discussions with Dr. Del Cid from interventional radiology. Patient however, has significant amount of abdominal pain and at this time, I have recommended that we take the patient to the operating room for a laparoscopic evaluation of this region and possible drainage, possible appendectomy, possible other procedures such as bowel resection or need for other procedures. Explained to the patient and her as well as a friend and answered all questions. Patient and family appear to understand and agreed with plans. With above assessment, I've recommended the followin. To the operating room for above Thank you very much for having me involved in the care of this very pleasant patient and wonderful family. If you have any questions, please feel free to contact me at [phone]. Nature of presenting problem: High severity Please note that, given the multiple number of diagnoses or management options, the moderate amount and/or complexity of data needed to be reviewed, and high risk of complications and/or morbidity or mortality, this qualifies as moderate complexity type of decision-making. Disclaimers: 1. Inadvertent spelling and grammatical errors are likely due to electronic health record (EHR)/dictation software used and do not reflect on the quality of delivered patient care. 2. The electronic timestamp recorded on this note does not necessarily reflect the actual date and time of the visit or the service. 3. Portions of this note may have been created through electronic templates and computer algorithms that might bring in information either from the system or from other physicians and providers. Please note that such information may or may not contain errors, the occurrence of which are outside of my control. In general (but not always) this happens either in the beginning or at the end of the note. The portion of the note that I have created are generally done in 1 continuous block of text, flanked at the beginning and at the end by " ", and entered into one field in the EHR. 4. There may be other unanticipated errors in the note that are outside of my control. I can only attest to the portions of the note that I have created. Updated clinical summary: A very-pleasant 27-year-old lady with comorbidity of BMI 41.4 and prior C- sections, presenting with a picture concerning for possible ruptured appendicitis. Comorbidities: 1. BMI 41.4 2. C-sections 2 3. Ectopic with removal of reportedly left ovary per patient's report (note that we see a cystic structure in the pelvis which could be the left ovary) and spontaneous 2010 4. Ovarian cyst (3.9 cm left adnexal cyst on CT of abdomen and pelvis, [facility] ) 5. Lobulated contours to the kidneys compatible with cortical scarring (CT of abdomen and pelvis, [facility] 08/26/2017) 6. Possible cholelithiasis without bile duct dilatation or pancreatic pathology (CT of abdomen and pelvis, [facility] 08/26/2017) 7. Mildly fatty infiltrated liver and mild splenomegaly (CT of abdomen and pelvis, [facility] 08/26/2017) 8. Iron deficiency anemia 9. Albumin 2.8 (after resuscitation) CONSULTATION REQUESTED BY: Elisa Martinez MD Dear Dr. Martinez, Thank you very much for the opportunity to participate in the care of this very pleasant lady and her wonderful family. HISTORY OF PRESENT ILLNESS: The patient is a very pleasant 27-year-old lady with above-mentioned comorbidities whom we were kindly asked consult regarding management of abdominal pain. Patient reported having pain for last number of days with progressive worsening of symptoms. Associated fevers, nausea and one episode of nonbloody vomiting was reported. No diarrhea or constipation noted and no blood in the stool or urine. Patient had similar pains in the past but this was significantly worse than prior episodes. She is workup included laboratory values in the emergency department showing white blood cell count of [address] scan of abdomen and pelvis that showed possible although not definitive evidence for ruptured appendicitis. Other etiologies could not be 100% ruled out. During my visit, the patient reported ongoing sharp pains in the right lower quadrant. She had improved somewhat since admission but still has significant amount of pain requiring narcotic medications. No other major complaints during my visit. Note that the patient was found to be anemic and 2 units of blood transfusions had been ordered and being carried out prior to my involvement with the patient. ALLERGIES: NO KNOWN DRUG ALLERGIES MEDICATIONS Documented in the electronic records and reviewed by me. Please see the electronic records for details, as well as details for inpatient medications which were also reviewed by me. SOCIAL HISTORY: The patient lives with family. 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 Has 2 children.-Tob; rare and occasional ETOH reported;-IVDU FAMILY HISTORY: There are no significant medical, surgical or oncologic issues in the family as reported by the patient or reflected in the chart. REVIEW OF SYSTEMS: Other than mentioned above, there were no other pertinent positives or pertinent negatives in an otherwise complete 14 point review of systems. PHYSICAL EXAMINATION GENERAL: The patient appears to be a very pleasant -[place] lady of non - descent lying in bed, appearing stated age, and otherwise in no acute distress. BMI: 41.4 VITAL SIGNS: AVSS (please also see auto important data if available as well as the electronic records) HEENT: Normocephalic and atraumatic. Extraocular muscles and hearing are grossly intact bilaterally and symmetrically. Sclerae are nonicteric. Oral cavity is clear; oral mucosa appear to be pink and moist. Dentition: fair. NECK: Supple. There is no lymphadenopathy or JVD. There is no submental, submandibular or supraclavicular lymphadenopathy. CHEST: Rises symmetrically with each breath; patient is breathing comfortably. There are no audible wheezes, rales or rhonchi on the gross exam. HEART: Pulse is regular and palpable on the right wrist. Capillary refill is normal. Carotid pulses are palpable bilaterally and symmetrically in the neck. EXTREMITIES: Lower extremities contain no pitting edema around the ankles bilaterally and symmetrically. ABDOMEN: Abdomen is soft, tender to palpation in the right lower quadrant and nondistended. No evidence of ascites, organomegaly, caput medusae, engorged subcutaneous veins, or other abnormalities. There are no peritoneal signs or guarding. SKIN: Appears to be pink and feels warm to touch. NEUROLOGIC: Awake, alert, and follows commands appropriately. LABORATORY DATA: See below IMAGING: See electronic chart. Please note that I've personally reviewed all pertinent available images and I agree in general with their overall reported findings. Consultation Date/Type/Reason Admit Date/Time Aug 26, 2017 at 17:54 Social History Smoking Status: Never smoker Exam/Review of Systems Vital Signs Vitals Vital Signs Date Time Temp Pulse Resp B/P Pulse Ox O2 Delivery O2 Flow Rate FiO2 08/27/17 11:21 99.5 08/27/17 08:04 102 18 119/65 99 08/26/17 20:00 Room Air 08/26/17 16:09 2 Intake and Output 08/26/17 08/26/17 08/27/17 15:00 23:00 07:00 Intake Total 662 ml Balance 662 ml Results Result Diagram: 08/27/17 1052 08/27/17 1052 Results 24 hrs Laboratory Tests Test 08/26/17 14:40 08/26/17 16:00 08/26/17 18:50 08/26/17 22:16 White Blood Count 20.1 #H Red Blood Count 4.34 Hemoglobin 6.7 *L Hematocrit 25.6 L Mean Corpuscular Volume 59.0 L Mean Corpuscular Hemoglobin 15.4 L Mean Corpuscular Hemoglobin Concent 26.2 L Red Cell Distribution Width 21.0 H Platelet Count 417 H Mean Platelet Volume 10.4 # Neutrophils % Segmented Neutrophils % (Manual) 90 H Lymphocytes % Lymphocytes % (Manual) 8 L Monocytes % Monocytes % (Manual) 1 Eosinophils % Eosinophils % (Manual) 1 Basophils % Nucleated Red Blood Cells % 0.0 Neutrophils # Absolute Lymphocytes (Manual) 1.6 Lymphocytes # Monocytes # Absolute Monocytes (Manual) 0.2 L Eosinophils # Basophils # Nucleated Red Blood Cells # Platelet Estimate NORMAL Hypochromasia 2+ Poikilocytosis 1+ Anisocytosis 3+ Microcytosis 3+ Prothrombin Time 15.3 H Prothrombin Time Ratio 1.2 INR International Normalized Ratio 1.20 Activated Partial Thromboplast Time 35.4 H Sodium Level 140 Potassium Level 3.1 L Chloride Level 100 Carbon Dioxide Level 24 Anion Gap 19 H Blood Urea Nitrogen 8 Creatinine 0.91 Glucose Level 145 Lactic Acid Level 3.3 *H 1.8 1.2 Calcium Level 8.7 Total Bilirubin 0.6 Direct Bilirubin 0.00 Indirect Bilirubin 0.6 Aspartate Amino Transf (AST/SGOT) 30 Alanine Aminotransferase (ALT/SGPT) 27 Alkaline Phosphatase 78 Total Protein 8.4 H Albumin 4.2 Globulin 4.20 H Albumin/Globulin Ratio 1.00 Lipase 34 Troponin I < 0.012 Iron Level 15 L Total Iron Binding Capacity 354 Percent Iron Saturation 4 L Vitamin B12 Level 548 Folate 6.7 Test 08/27/17 06:40 08/27/17 10:52 Lab Scanned Report BLOOD TRANSFUSION White Blood Count 15.1 #H Red Blood Count 3.73 L Hemoglobin 6.2 *L Hematocrit 22.4 L Mean Corpuscular Volume 60.1 L Mean Corpuscular Hemoglobin 16.6 L Mean Corpuscular Hemoglobin Concent 27.7 L Red Cell Distribution Width 21.6 H Platelet Count 329 # Mean Platelet Volume 10.7 H Neutrophils % 79.8 H Lymphocytes % 10.9 L Monocytes % 7.6 Eosinophils % 0.5 Basophils % 0.3 Nucleated Red Blood Cells % 0.0 Neutrophils # 12.0 H Lymphocytes # 1.7 Monocytes # 1.2 H Eosinophils # 0.1 Basophils # 0.0 Nucleated Red Blood Cells # 0.0 Prothrombin Time 15.4 H Prothrombin Time Ratio 1.2 INR International Normalized Ratio 1.21 Activated Partial Thromboplast Time 38.4 H Sodium Level 142 Potassium Level 3.3 L Chloride Level 107 Carbon Dioxide Level 26 Anion Gap 12 # Blood Urea Nitrogen 7 Creatinine 0.81 Glucose Level 108 Lactic Acid Level 1.7 Calcium Level 7.9 L Phosphorus Level 2.5 Magnesium Level 2.0 Total Bilirubin 0.4 Direct Bilirubin 0.00 Indirect Bilirubin 0.4 Aspartate Amino Transf (AST/SGOT) 21 Alanine Aminotransferase (ALT/SGPT) 28 Alkaline Phosphatase 70 Total Protein 6.2 # Albumin 2.8 #L Globulin 3.40 H Albumin/Globulin Ratio 0.82 Lipase 53 Medications Medications Current Medications Piperacillin Sod/ Tazobactam Sod (Zosyn 3.375gm/ 50 ml (Pmx)) 50 ml @ 100 mls/ hr Q6 IVPB Last administered on 08/27/17 05:38; Admin Dose 100 MLS/HR; Start 08/27/17 at 00:00 Acetaminophen (Tylenol Tab) 650 mg Q4H PRN PO PAIN AND OR ELEVATED TEMP Last administered on 08/27/17 08:30; Admin Dose 650 MG; Start 08/26/17 at 21:30 Ondansetron HCl (Zofran Inj) 4 mg Q4H PRN IV NAUSEA AND/OR VOMITING Last administered on 08/27/17 11:17; Admin Dose 4 MG; Start 08/26/17 at 21:30 Morphine Sulfate 2 mg 2 mg Q2H PRN IV pain Last administered on 08/27/17 10: 34; Admin Dose 2 MG; Start 08/26/17 at 21:30 Vancomycin HCl (Vancocin) 250 ml @ 125 mls/hr Q8H IVPB Last administered on 08:29; Admin Dose 125 MLS/HR; Start 08/27/17 at 08:00 Miscellaneous Information 1 ONCE ONCE XX ; Start 08/27/17 at 23:00; Stop at 23:01 Potassium Chloride/Sodium Chloride (KCl/NS) 1,020 ml @ 125 mls/hr Q8H10M IV ; Start 08/27/17 at 13:30 Famotidine 20 mg 20 mg BID IV ; Start 08/27/17 at 13:30 Ferric Sodium Gluconate Complex/ Sodium Chloride (Ferrlecit/NS) 110 ml @ 100 mls/hr Q24H IVPB ; Start 08/27/17 at 13:30; Stop 08/29/17 at 14:35 MINESH RUSSELL M.D. Aug 27, 2017 13:58
[2017-08-27] MEDS: FAMOTIDINE 20 MG INJ IV SCH (14:37)
[2017-08-27] MEDS: POTASSIUM CHLORIDE 40 MEQ in SOD CHLORIDE 0.9% 1,000 ML IV SCH ×2 (14:37→21:40)
[2017-08-27 14:48] VITALS: BP 129/71; RESP 18
[2017-08-27] MEDS: SOD FERRIC GLUC COMPLX 125 MG in SOD CHLORIDE 0.9% 100 ML IVPB SCH (18:40)
--- NOTE | 2017-08-27 18:58 | RADRPT ---
PROCEDURE: US Abdomen. CLINICAL INDICATION: abdominal pain , evaluate for free fluid TECHNIQUE: Multiple real-time images were acquired of the patient's abdomen and retroperitoneum ut ilizing a high resolution transducer. COMPARISON: CT 08/26/2017 FINDINGS: There is a small amount of free fluid in the right lower quadrant. There is a 3.2 cm simple cyst in the left ovary. There is normal Doppler flow in the left ovary. No evidence of free fluid in the bilateral upper quadrants and left lower quadrant. RPTAT: AA IMPRESSION: Small amount of free fluid in the right lower quadrant. 3.2 cm simple cyst in the left ovary. .Solomon Mena MD, MD Date Time Electronically viewed and signed by .Solomon Mena MD, on 08/27/2017 18:58 .S/
[2017-08-27 20:16] VITALS: BP 103/71; RESP 18
[2017-08-28] MEDS: FAMOTIDINE 20 MG INJ IV SCH ×3 (00:18→20:53)
[2017-08-28] MEDS: PIPER-TAZO 3.375 GM IV (PMX) 50 ML IVPB SCH ×5 (00:23→20:02)
--- NOTE | 2017-08-28 04:02 | RADRPT ---
PROCEDURE: US Pelvis. CLINICAL INDICATION: R/O uterus fibroids, bleeding TECHNIQUE: Multiple sonographic images of the pelvis were obtained utilizing a transabdominal and endovaginal technique. The images were reviewed on a PACS workstation. COMPARISON: US PELVIS 04/25/2017 FINDINGS: The uterus is visualized and measures 10.4 x 5.1 x 6.0 cm. The endometrial echo complex is normal an d measures 10.0 mm. Correlate with menstrual cycle phase . There is no evidence of a uterine fibroid . Trace free fluid is present within the posterior cul-de-sac. The right ovary is not visualized julio c tible with history of oophorectomy. The left ovary measures 6.1 x 4.0 x 4.3 cm. Arterial color Dopp ler flow was confirmed. Again demonstrated is an ovarian cyst containing debris measuring 3.3 x 3.3 x 3.9 cm. On previous ultrasound dated 04/26/2017 this cyst measured 3.4 x 3.4 x 3.1 cm. IMPRESSION: 1. Grossly stable left ovarian cyst containing debris measuring 3.3 x 3.3 x 3.9 cm. 2. Unremarkable uterus specifically demonstrating no evidence of a uterine fibroid. 3. Non-visualized right ovary compatible with provided history of oopherectomy. RPTAT: HRSR Physician Keon Date Time Electronically viewed and signed by Physician Keon on 08/28/2017 04:02 RR/
[2017-08-28 05:16] VITALS: BP 115/53; RESP 18
[2017-08-28] MEDS: POTASSIUM CHLORIDE 40 MEQ in SOD CHLORIDE 0.9% 1,000 ML IV SCH ×2 (05:36→14:00)
[2017-08-28 06:19] LABS: ABNORMAL IP MESSAGE 1; BASOPHIL # 0.1 10^3/ul (0.0-0.1); BASOPHILS % 0.4 % (0.0-2.0); EOSINOPHILS # 0.2 10^3/ul (0.0-0.5); EOSINOPHILS % 1.5 % (0.0-7.0); HEMATOCRIT 29.7 % (37.0-47.0); HEMOGLOBIN 8.6 g/dl (12.0-16.0); LYMPHOCYTES # 1.8 10^3/ul (0.8-2.9); LYMPHOCYTES % 14.8 % (15.0-51.0); MEAN CORPUSCULAR HEMOGLOBIN 18.7 pg (29.0-33.0); MEAN CORPUSCULAR VOLUME 64.4 fl (82.0-101.0); MONOCYTE # 1.1 10^3/ul (0.3-0.9); MONOCYTES % 8.9 % (0.0-11.0); NEUTROPHILS % 73.4 % (39.0-77.0); NUCLEATED RED BLOOD CELLS% 0.2 /100WBC (0.0-0.0); PLATELET COUNT 371 10^3/UL (140-415); RED BLOOD COUNT 4.61 10^6/ul (4.20-5.40); RED CELL DISTRIBUTION WIDTH 24.2 % (11.5-14.5); WHITE BLOOD COUNT 12.2 10^3/ul (4.8-10.8)
[2017-08-28 06:24] LABS: POSITIVE DIFF @See below
[2017-08-28 06:45] LABS: ALBUMIN 3.2 g/dl (3.3-4.9); ALBUMIN/GLOBULIN RATIO 0.8; BILIRUBIN,INDIRECT 0.5 mg/dl (0-1.1); BILIRUBIN,TOTAL 0.5 mg/dl (0.2-1.3); CALCIUM 8.3 mg/dl (8.4-10.2); CREATININE 0.95 mg/dl (0.44-1.00); POTASSIUM 3.1 mmol/L (3.5-5.1); TOTAL PROTEIN 7.2 g/dl (6.1-8.1)
[2017-08-28 07:00] LABS: MAGNESIUM 2.1 mg/dl (1.7-2.5)
[2017-08-28 08:15] VITALS: BP 129/74; RESP 18
[2017-08-28] MEDS ORDERED: VANCOMYCIN 1 GM in NS 250 ML IVPB SCH (09:00)
[2017-08-28] MEDS ORDERED: POTASSIUM CHLORIDE (SR) 20 MEQ TAB PO STA (11:56)
--- NOTE | 2017-08-28 11:56 | PN ---
Date/Time of Note Date/Time of Note DATE: 08/28/17 TIME: 11:54 Assessment/Plan VTE Prophylaxis VTE Prophylaxis Intervention: SCD's Lines/Catheters IV Catheter Type (from Nrsg): Peripheral IV Assessment/Plan Assessment/Plan 27-year-old female with 1. Acute appendicitis, ruptured, on IV antibiotics and IV fluids. For now on medical management with IV antibiotics. No abscess or fluid collection to drain. Dr. Chong will be discussed surgical options patient if needed. We will continue full liquid diet for now and IV antibiotics. WBC is trending down. Pain is much improved, patient tolerating full liquids. Pain control 2. Positive blood culture, 1/2 with coag negative Staphylococcus, most likely contaminant, repeat blood cultures are negative so far, continue current vancomycin. 3. Acute on chronic anemia, iron deficient, secondary to menometrorrhagia, pelvic ultrasound showing no ureteral fibroids. Patient will have to follow-up with her [facility]AN[facility] SEPARATOR doctor. For now will continue Ferrlicit/IV iron while inpatient. 4. Morbid obesity Prophylaxis: Pepcid for GI prophylaxis, SCDs for DVT prophylaxis Disposition: Follow-up further recommendation from general surgery, Dr. Cantrell later today. Subjective 24 Hr Interval Summary Free Text/Dictation Patient feels better, she looks much more comfortable, she status post total of 4 units of packed red blood cells, pelvic ultrasound and abdominal ultrasound yesterday did confirm that the patient had a right oophorectomy and stable left ovarian cyst, small. It also showed a right lower quadrant fluid. Discussed with Dr. Cantrell, he will talk to the patient later today but likely still would pursue medical management with IV antibiotics. Exam/Review of Systems Vital Signs Vitals Vital Signs Date Time Temp Pulse Resp B/P Pulse Ox O2 Delivery O2 Flow Rate FiO2 08/28/17 08:15 98.1 80 18 129/74 98 08/26/17 20:00 Room Air 08/26/17 16:09 2 Intake and Output 08/27/17 08/27/17 08/28/17 15:00 23:00 07:00 Intake Total 250 ml 1610 ml 1005 ml Balance 250 ml 1610 ml 1005 ml Exam Constitutional: alert, obese (Morbid), oriented, well developed Respiratory: clear to auscultation, normal air movement Cardiovascular: nl pulses, regular rate and rhythm Gastrointestinal: soft, tender (Some tenderness right side) Musculoskeletal: nl extremities to inspection, nl gait and stance Extremities: normal pulses Neurological: PHOTOGRAPHIC RESTORER II-XII intact, nl mental status, nl speech, nl strength Results Result Diagram: 08/28/17 0458 08/28/17 0458 Results 24 hrs Laboratory Tests Test 08/27/17 19:41 08/28/17 04:58 08/28/17 05:38 Hemoglobin 9.1 #L 8.6 L White Blood Count 12.2 H Red Blood Count 4.61 # Hematocrit 29.7 #L Mean Corpuscular Volume 64.4 L Mean Corpuscular Hemoglobin 18.7 L Mean Corpuscular Hemoglobin Concent 29.0 L Red Cell Distribution Width 24.2 H Platelet Count 371 Mean Platelet Volume Neutrophils % 73.4 Lymphocytes % 14.8 L Monocytes % 8.9 Eosinophils % 1.5 Basophils % 0.4 Nucleated Red Blood Cells % 0.2 H Neutrophils # 9.0 H Lymphocytes # 1.8 Monocytes # 1.1 H Eosinophils # 0.2 Basophils # 0.1 Nucleated Red Blood Cells # 0.0 Sodium Level 146 H Potassium Level 3.1 L Chloride Level 108 Carbon Dioxide Level 29 Anion Gap 12 Blood Urea Nitrogen 5 L Creatinine 0.95 Glucose Level 85 Calcium Level 8.3 L Phosphorus Level 4.0 Magnesium Level 2.1 Total Bilirubin 0.5 Direct Bilirubin 0.00 Indirect Bilirubin 0.5 Aspartate Amino Transf (AST/SGOT) 28 Alanine Aminotransferase (ALT/SGPT) 28 Alkaline Phosphatase 84 Total Protein 7.2 # Albumin 3.2 L Globulin 4.00 H Albumin/Globulin Ratio 0.80 Lab Scanned Report BLOOD TRANSFUSION Imaging Free Text/Dictation PROCEDURE: US Pelvis. CLINICAL INDICATION: R/O uterus fibroids, bleeding TECHNIQUE: Multiple sonographic images of the pelvis were obtained utilizing a transabdominal and endovaginal technique. The images were reviewed on a PACS workstation. COMPARISON: US PELVIS 04/25/2017 FINDINGS: The uterus is visualized and measures 10.4 x 5.1 x 6.0 cm. The endometrial echo complex is normal and measures 10.0 mm. Correlate with menstrual cycle phase . There is no evidence of a uterine fibroid. Trace free fluid is present within the posterior cul-de-sac. The right ovary is not visualized compatible with history of oophorectomy. The left ovary measures 6.1 x 4.0 x 4.3 cm. Arterial color Doppler flow was confirmed. Again demonstrated is an ovarian cyst containing debris measuring 3.3 x 3.3 x 3.9 cm. On previous ultrasound dated 04/26/2017 this cyst measured 3.4 x 3.4 x 3.1 cm. IMPRESSION: 1. Grossly stable left ovarian cyst containing debris measuring 3.3 x 3.3 x 3.9 cm. 2. Unremarkable uterus specifically demonstrating no evidence of a uterine fibroid. 3. Non-visualized right ovary compatible with provided history of oopherectomy. RPTAT: HRSR PROCEDURE: US Abdomen. CLINICAL INDICATION: abdominal pain , evaluate for free fluid TECHNIQUE: Multiple real-time images were acquired of the patient's abdomen and retroperitoneum utilizing a high resolution transducer. COMPARISON: CT 08/26/2017 FINDINGS: There is a small amount of free fluid in the right lower quadrant. There is a 3.2 cm simple cyst in the left ovary. There is normal Doppler flow in the left ovary. No evidence of free fluid in the bilateral upper quadrants and left lower quadrant. RPTAT: AA IMPRESSION: Small amount of free fluid in the right lower quadrant. 3.2 cm simple cyst in the left ovary. Medications Medications Current Medications Piperacillin Sod/ Tazobactam Sod (Zosyn 3.375gm/ 50 ml (Pmx)) 50 ml @ 100 mls/ hr Q6 IVPB Last administered on 08/28/17 07:47; Admin Dose 100 MLS/HR; Start 08/27/17 at 00:00 Acetaminophen (Tylenol Tab) 650 mg Q4H PRN PO PAIN AND OR ELEVATED TEMP Last administered on 08/27/17 08:30; Admin Dose 650 MG; Start 08/26/17 at 21:30 Ondansetron HCl (Zofran Inj) 4 mg Q4H PRN IV NAUSEA AND/OR VOMITING Last administered on 08/27/17 11:17; Admin Dose 4 MG; Start 08/26/17 at 21:30 Morphine Sulfate 2 mg 2 mg Q2H PRN IV pain Last administered on 08/27/17 10: 34; Admin Dose 2 MG; Start 08/26/17 at 21:30 Potassium Chloride/Sodium Chloride (KCl/NS) 1,020 ml @ 125 mls/hr Q8H10M IV Last administered on 08/27/17 14:37; Admin Dose 125 MLS/HR; Start 08/27/17 at 13:30 Famotidine 20 mg 20 mg BID IV Last administered on 08/28/17 08:29; Admin Dose 20 MG; Start 08/27/17 at 13:30 Ferric Sodium Gluconate Complex 125 mg/Sodium Chloride 110 ml @ 100 mls/hr Q24H IVPB Last administered on 08/27/17 18:40; Admin Dose 100 MLS/HR; Start 08/27/17 at 13:30; Stop 08/29/17 at 14:35 Vancomycin HCl (Vancocin) 250 ml @ 125 mls/hr Q8H IVPB ; Start 08/28/17 at 09: 00 PJ PAULINO Aug 28, 2017 11:56
[2017-08-28] MEDS: VANCOMYCIN 1 GM in NS 250 ML IVPB SCH ×3 (12:46→20:53)
[2017-08-28 14:26] VITALS: BP 122/59; RESP 18
[2017-08-28] MEDS: SOD FERRIC GLUC COMPLX 125 MG in SOD CHLORIDE 0.9% 100 ML IVPB SCH (14:50)
[2017-08-28] MEDS ORDERED: POTASSIUM CHLORIDE 20 MEQ POWDER FOR ORAL SOLN PO ONE (15:30)
--- NOTE | 2017-08-28 18:40 | PN ---
Date/Time of Note Date/Time of Note DATE: 08/28/17 TIME: 09:59 Assessment/Plan Lines/Catheters IV Catheter Type (from Nrs): Peripheral IV Assessment/Plan Assessment/Plan [facility] Progress Note Date of Service: 08/28/2017 Location of Service: [facility] second floor [facility] Today's Assessment & Plan: Overall stable and appears improved. Abdomen appears improved. Abdominal and pelvic ultrasounds that were done yesterday only showed trace fluid in the pelvis and no drainable abscess. Since the patient appears to have a phlegmonous process in the right lower quadrant, best approach is continued broad-spectrum antimicrobial therapy as well as pain control and observation in- house. In my opinion, surgical intervention at this time carries high risk of complications and patient's clinical picture can potentially improve without surgical intervention needed. This impression also has been formulated after the patient relates to me today that every few months, the patient gets similar pains and requires pain medications and attention from medical community. This was somewhat new information to me and could potentially point away from the appendix as the major source. We need to consider other colonic or intestinal etiologies in the clinical picture. Patient may require colonoscopy after a few weeks time as past to evaluate the colon well. Explained to patient and her and answered all questions. Patient and family appear to understand and agreed with plans Previous assessments that applies today: A very-pleasant 27-year-old lady with comorbidity of BMI 41.4 and prior C- sections, presenting with a picture concerning for possible ruptured appendicitis. No drainable abscess noted on CT scan per my discussions with Dr. Del Cid from interventional radiology. With above assessment, I've recommended the followin. Continue current cares with broad-spectrum antimicrobial coverage as well as symptom control 2. Keep in-house 3. Regular diet 4. Labs in a.m. 5. Patient may need outpatient colonoscopy in 4-5 weeks Thank you very much for having me involved in the care of this very pleasant patient and wonderful family. If you have any questions, please feel free to contact me at [phone]. Nature of presenting problem: High severity Please note that, given the multiple number of diagnoses or management options, the moderate amount and/or complexity of data needed to be reviewed, and high risk of complications and/or morbidity or mortality, this qualifies as moderate complexity type of decision-making. Disclaimers: 1. Inadvertent spelling and grammatical errors are likely due to electronic health record (EHR)/dictation software used and do not reflect on the quality of delivered patient care. 2. The electronic timestamp recorded on this note does not necessarily reflect the actual date and time of the visit or the service. 3. Portions of this note may have been created through electronic templates and computer algorithms that might bring in information either from the system or from other physicians and providers. Please note that such information may or may not contain errors, the occurrence of which are outside of my control. In general (but not always) this happens either in the beginning or at the end of the note. The portion of the note that I have created are generally done in 1 continuous block of text, flanked at the beginning and at the end by " ", and entered into one field in the EHR. 4. There may be other unanticipated errors in the note that are outside of my control. I can only attest to the portions of the note that I have created. Updated clinical summary: A very-pleasant 27-year-old lady with comorbidity of BMI 41.4 and prior C- sections, presenting with a picture concerning for possible ruptured appendicitis. Comorbidities: 1. BMI 41.4 2. C-sections 2 3. Ectopic with removal of reportedly left ovary per patient's report (note that we see a cystic structure in the pelvis which could be the left ovary) and spontaneous 2010 4. Ovarian cyst (3.9 cm left adnexal cyst on CT of abdomen and pelvis, [facility] ) 5. Lobulated contours to the kidneys compatible with cortical scarring (CT of abdomen and pelvis, [facility] 08/26/2017) 6. Possible cholelithiasis without bile duct dilatation or pancreatic pathology (CT of abdomen and pelvis, [facility] 08/26/2017) 7. Mildly fatty infiltrated liver and mild splenomegaly (CT of abdomen and pelvis, [facility] 08/26/2017) 8. Iron deficiency anemia 9. Albumin 2.8 (after resuscitation) Subjective: No major events or complaints and reports overall feeling improved; still with some abdominal pain and under control with medications; no n/v/d; no sob or cp; + bowel activity; + activity Objective: Vitals: See below Exam: GENERAL: On exam, the patient was laying in bed and appeared to be comfortable and in no acute distress. ABDOMEN: Soft, minimally tender to palpation in the right lower quadrant and nondistended. There are no peritoneal signs or guarding. SKIN: Skin appears to be pink and feels warm to touch. NEUROLOGIC: Patient is awake, alert, and follows commands appropriately. Exam/Review of Systems Vital Signs Vitals Vital Signs Date Time Temp Pulse Resp B/P Pulse Ox O2 Delivery O2 Flow Rate FiO2 08/28/17 14:26 98.0 80 18 122/59 98 08/26/17 20:00 Room Air 08/26/17 16:09 2 Intake and Output 08/27/17 08/27/17 08/28/17 15:00 23:00 07:00 Intake Total 250 ml 1610 ml 1005 ml Balance 250 ml 1610 ml 1005 ml Results Result Diagram: 08/28/17 0458 08/28/17 0458 MINESH RUSSELL M.D. Aug 28, 2017 18:40
[2017-08-28 21:33] VITALS: BP 127/65; RESP 18
[2017-08-29] MEDS: PIPER-TAZO 3.375 GM IV (PMX) 50 ML IVPB SCH ×4 (00:24→17:03)
[2017-08-29] MEDS ORDERED: IOHEXOL 300MG/ML 150 ML BTL ONE ×2 (01:47)
--- NOTE | 2017-08-29 02:09 | RADRPT ---
PROCEDURE: CT angiogram chest. CLINICAL INDICATION: Shortness of breath. TECHNIQUE: CT angiogram of the chest was performed utilizing axial images with reconstructions in sagittal and coronal planes following the intravenous administration of 100 cc Omnipaque 350 contras t. The administered radiation dose is CTDI 20 mGy, DLP 763 mGy-cm. One or more of the following dose reduction techniques were used: automated exposure control, adjustment of the mA and/or kV accordin g to patient size and/or use of iterative reconstruction technique. 3D and / or MIPS reformats were performed. DICOM images are available. COMPARISON: 08/26/2017 FINDINGS: Pulmonary angiogram: The pulmonary arteries are adequately opacified to the level of the segmental pulmonary artery branches. There is minimal respiratory motion artifact. There is no evidence of p ulmonary embolus. Aortogram: There is no evidence of aortic dissection or aneurysm. Major branches of the aorta are patent. Chest: The lungs are clear. No pleural or pericardial effusions are seen. The tracheobronchial tree is un remarkable. The heart is normal in size. No pericardial effusion is seen. There is no evidence of mediastinal or hilar adenopathy. Visualized Upper abdomen: Hepatic steatosis is noted. Osseous structures: Unremarkable. IMPRESSION: No evidence of pulmonary embolus. RPTAT: HIKT .Elio Weber MD, Date Time Electronically viewed and signed by .Elio Weber MD, on 08/29/2017 02:08 .T/
[2017-08-29 02:55] VITALS: BP 120/64; RESP 16
[2017-08-29] MEDS: VANCOMYCIN 1 GM in NS 250 ML IVPB SCH (05:26)
[2017-08-29 07:45] VITALS: BP 142/88; RESP 18
[2017-08-29] MEDS: POTASSIUM CHLORIDE 40 MEQ in SOD CHLORIDE 0.9% 1,000 ML IV SCH ×4 (09:15→22:40)
[2017-08-29] MEDS: FAMOTIDINE 20 MG INJ IV SCH ×2 (09:16→20:58)
--- NOTE | 2017-08-29 11:19 | PN ---
Date/Time of Note Date/Time of Note DATE: 08/29/17 TIME: 11:12 Assessment/Plan VTE Prophylaxis VTE Prophylaxis Intervention: SCD's Lines/Catheters IV [facility]ter Type (from [facility]): Peripheral IV Urinary Cath still in place: No Assessment/Plan Assessment/Plan 27-year-old female with 1. Presumed acute appendicitis, ruptured, on IV antibiotics and IV fluids. Patient reports that she still having ongoing right lower quadrant pain. WBC trending down as of yesterday, labs are pending this morning. For now on medical management with IV antibiotics. No abscess or fluid collection to drain. Appreciate recommendations from Dr. Cantrell, follow-up labs today, patient currently on regular diet however she has been refusing to eat because as she puts it she does not feel that she is ready to eat, she is concerned about her right lower quadrant pain Continue pain control 2. Positive blood culture, 1/2 with coag negative Staphylococcus, most likely contaminant, repeat blood cultures are negative so far, continue current vancomycin. 3. Acute on chronic anemia, iron deficient, secondary to menometrorrhagia, pelvic ultrasound showing no ureteral fibroids. No acute bleeding noted currently. 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 For now will continue Ferrlicit/IV iron while inpatient. 4. Episode of chest pressure and mild sinus tachycardia yesterday, CT angiogram of chest negative for PE or any acute findings. Patient denies chest pressure this morning. 5. Morbid obesity Prophylaxis: Pepcid for GI prophylaxis, SCDs for DVT prophylaxis Disposition: Follow-up laboratory data and further recommendation from general surgery. Subjective 24 Hr Interval Summary Free Text/Dictation Patient remained stable this morning, she did complain of chest pressure and some shortness of breath last night, CT angiogram of the chest negative. She reports ongoing right lower quadrant pain 5/10 most of the time but sometimes ramps up to 10/10, because of that she has been refusing to eat regular fluid, she is only drinking liquids. Afebrile, a.m. labs pending today. Exam/Review of Systems Vital Signs Vitals Vital Signs Date Time Temp Pulse Resp B/P Pulse Ox O2 Delivery O2 Flow Rate FiO2 08/29/17 07:45 98.5 68 18 142/88 98 08/26/17 20:00 Room Air 08/26/17 16:09 2 Intake and Output 08/28/17 08/28/17 08/29/17 15:00 23:00 07:00 Intake Total 350 ml 1435 ml 1050 ml Balance 350 ml 1435 ml 1050 ml Exam Constitutional: alert, obese (Morbid), oriented, well developed Respiratory: clear to auscultation, normal air movement Cardiovascular: nl pulses, regular rate and rhythm Gastrointestinal: soft, tender (Right lower quadrant 5/10) Musculoskeletal: nl extremities to inspection Extremities: normal pulses Neurological: DIESEL ENGINE ENGINEER II-XII intact, nl mental status, nl speech, nl strength Results Result Diagram: 08/28/17 0458 08/28/17 0458 Results 24 hrs Laboratory Tests Test 08/29/17 05:37 Lab Scanned Report BLOOD TRANSFUSION Imaging Free Text/Dictation PROCEDURE: CT angiogram chest. CLINICAL INDICATION: Shortness of breath. TECHNIQUE: CT angiogram of the chest was performed utilizing axial images with reconstructions in sagittal and coronal planes following the intravenous administration of 100 cc Omnipaque 350 contrast. The administered radiation dose is CTDI 20 mGy, DLP 763 mGy-cm. One or more of the following dose reduction techniques were used: automated exposure control, adjustment of the mA and/or kV according to patient size and/or use of iterative reconstruction technique. 3D and / or MIPS reformats were performed. DICOM images are available. COMPARISON: 08/26/2017 FINDINGS: Pulmonary angiogram: The pulmonary arteries are adequately opacified to the level of the segmental pulmonary artery branches. There is minimal respiratory motion artifact. There is no evidence of pulmonary embolus. Aortogram: There is no evidence of aortic dissection or aneurysm. Major branches of the aorta are patent. Chest: The lungs are clear. No pleural or pericardial effusions are seen. The tracheobronchial tree is unremarkable. The heart is normal in size. No pericardial effusion is seen. There is no evidence of mediastinal or hilar adenopathy. Visualized Upper abdomen: Hepatic steatosis is noted. Osseous structures: Unremarkable. IMPRESSION: No evidence of pulmonary embolus. Medications Medications Current Medications Piperacillin Sod/ Tazobactam Sod (Zosyn 3.375gm/ 50 ml (Pmx)) 50 ml @ 100 mls/ hr Q6 IVPB Last administered on 08/29/17t 05:26; Admin Dose 100 MLS/HR; Start 08/27/17 at 00:00 Acetaminophen (Tylenol Tab) 650 mg Q4H PRN PO PAIN AND OR ELEVATED TEMP Last administered on 08/27/17 08:30; Admin Dose 650 MG; Start 08/26/17 at 21:30 Ondansetron HCl (Zofran Inj) 4 mg Q4H PRN IV NAUSEA AND/OR VOMITING Last administered on 08/27/17 11:17; Admin Dose 4 MG; Start 08/26/17 at 21:30 Morphine Sulfate 2 mg 2 mg Q2H PRN IV pain Last administered on 08/27/17 10: 34; Admin Dose 2 MG; Start 08/26/17 at 21:30 Potassium Chloride/Sodium Chloride (KCl/NS) 1,020 ml @ 125 mls/hr Q8H10M IV Last administered on 08/27/17 14:37; Admin Dose 125 MLS/HR; Start 08/27/17 at 13:30 Famotidine 20 mg 20 mg BID IV Last administered on 08/29/17 09:16; Admin Dose 20 MG; Start 08/27/17 at 13:30 Ferric Sodium Gluconate Complex 125 mg/Sodium Chloride 110 ml @ 100 mls/hr Q24H IVPB Last administered on 08/28/17 14:50; Admin Dose 100 MLS/HR; Start 08/27/17 at 13:30; Stop 08/29/17 at 14:35 Vancomycin HCl (Vancocin) 250 ml @ 125 mls/hr Q8H IVPB Last administered on 05:26; Admin Dose 125 MLS/HR; Start 08/28/17 at 13:00 PJ PAULINO Aug 29, 2017 11:19
[2017-08-29 11:47] LABS: ABNORMAL IP MESSAGE 1; BASOPHIL # 0.1 10^3/ul (0.0-0.1); BASOPHILS % 0.5 % (0.0-2.0); EOSINOPHILS # 0.2 10^3/ul (0.0-0.5); EOSINOPHILS % 1.4 % (0.0-7.0); HEMATOCRIT 31.7 % (37.0-47.0); HEMOGLOBIN 9.3 g/dl (12.0-16.0); LYMPHOCYTES # 1.8 10^3/ul (0.8-2.9); LYMPHOCYTES % 14.8 % (15.0-51.0); MEAN CORPUSCULAR HEMOGLOBIN 19.3 pg (29.0-33.0); MEAN CORPUSCULAR HGB CONC 29.3 g/dl (32.0-37.0); MEAN CORPUSCULAR VOLUME 65.8 fl (82.0-101.0); MEAN PLATELET VOLUME 10.1 fl (7.4-10.4); MONOCYTES % 7.9 % (0.0-11.0); NEUTROPHIL # 9.2 10^3/ul (1.6-7.5); NEUTROPHILS % 74.7 % (39.0-77.0); NUCLEATED RED BLOOD CELLS% 0.2 /100WBC (0.0-0.0); PLATELET COUNT 419 10^3/UL (140-415); RED BLOOD COUNT 4.82 10^6/ul (4.20-5.40); RED CELL DISTRIBUTION WIDTH 26.5 % (11.5-14.5); WHITE BLOOD COUNT 12.3 10^3/ul (4.8-10.8)
[2017-08-29 12:01] LABS: INR 1.08; PT RATIO 1.1
[2017-08-29 12:02] LABS: PARTIAL THROMBOPLASTIN TIME 34.9 Sec (25.0-35.0)
[2017-08-29 12:04] LABS: POSITIVE DIFF @See below
[2017-08-29 12:06] LABS: ALBUMIN 3.3 g/dl (3.3-4.9); ALBUMIN/GLOBULIN RATIO 0.82; BILIRUBIN,INDIRECT 0.1 mg/dl (0-1.1); BILIRUBIN,TOTAL 0.1 mg/dl (0.2-1.3); CALCIUM 8.6 mg/dl (8.4-10.2); CREATININE 0.82 mg/dl (0.44-1.00); POTASSIUM 3.2 mmol/L (3.5-5.1); TOTAL PROTEIN 7.3 g/dl (6.1-8.1)
[2017-08-29 12:07] LABS: PHOSPHORUS 3.8 mg/dl (2.5-4.9)
[2017-08-29] MEDS: SOD FERRIC GLUC COMPLX 125 MG in SOD CHLORIDE 0.9% 100 ML IVPB SCH (12:38)
[2017-08-29 14:03] VITALS: BP 152/63; RESP 18
[2017-08-29] MEDS ORDERED: POTASSIUM CHLORIDE 20 MEQ POWDER FOR ORAL SOLN PO ONE (16:00)
--- NOTE | 2017-08-29 16:47 | PN ---
Date/Time of Note Date/Time of Note DATE: 08/29/17 TIME: 16:36 Assessment/Plan Lines/Catheters IV Catheter Type (from Nrsg): Peripheral IV Ramon in Place (from Nrsg): No Assessment/Plan Assessment/Plan [facility] Progress Note Date of Service: 08/29/2017 Location of Service: [facility] second floor [facility] Today's Assessment & Plan: Overall stable but with ongoing issues with pain in the right lower quadrant that does not seem to have improved significantly since admission. At this point, it may be more expeditious to perform a laparoscopic exploration with possible need for appendectomy versus other procedures (e.g. drainage) to help expedite recovery and to also explain why patient's symptoms have not improved after a few days in the hospital. Explained to patient (no family in the room) and answered all questions. Patient appeared to understand and agreed with plans. Also discussed with Dr. Morales. Previous assessments that applies today: A very-pleasant 27-year-old lady with comorbidity of BMI 41.4 and prior C- sections, presenting with a picture concerning for possible ruptured appendicitis. No drainable abscess noted on CT scan per my discussions with Dr. Del Cid from interventional radiology. With above assessment, I've recommended the followin. Continue current cares with broad-spectrum antimicrobial coverage as well as symptom control 2. Keep in-house 3. Continue regular diet, but n.p.o. after midnight 4. Labs in a.m. 5. On the add-on list tomorrow for laparoscopic, possible open appendectomy, possible, possible drainage procedure, possible bowel resection, possible ostomy or other related procedures. 6. Patient may need outpatient colonoscopy in 4-5 weeks Thank you very much for having me involved in the care of this very pleasant patient and wonderful family. If you have any questions, please feel free to contact me at [phone]. Nature of presenting problem: High severity Please note that, given the multiple number of diagnoses or management options, the moderate amount and/or complexity of data needed to be reviewed, and high risk of complications and/or morbidity or mortality, this qualifies as moderate complexity type of decision-making. Disclaimers: 1. Inadvertent spelling and grammatical errors are likely due to electronic health record (EHR)/dictation software used and do not reflect on the quality of delivered patient care. 2. The electronic timestamp recorded on this note does not necessarily reflect the actual date and time of the visit or the service. 3. Portions of this note may have been created through electronic templates and computer algorithms that might bring in information either from the system or from other physicians and providers. Please note that such information may or may not contain errors, the occurrence of which are outside of my control. In general (but not always) this happens either in the beginning or at the end of the note. The portion of the note that I have created are generally done in 1 continuous block of text, flanked at the beginning and at the end by " ", and entered into one field in the EHR. 4. There may be other unanticipated errors in the note that are outside of my control. I can only attest to the portions of the note that I have created. Updated clinical summary: A very-pleasant 27-year-old lady with comorbidity of BMI 41.4 and prior C- sections, presenting with a picture concerning for possible ruptured appendicitis. Pain remained unchanged after a few days in the hospital. Chest pain on 08/28/2017 at night led to a CT angiogram that did not demonstrate any evidence of pulmonary embolism or other major pathology. Comorbidities: 1. BMI 41.4 2. C-sections 2 3. Ectopic with removal of reportedly left ovary per patient's report (note that we see a cystic structure in the pelvis which could be the left ovary) and spontaneous 2010 4. Ovarian cyst (3.9 cm left adnexal cyst on CT of abdomen and pelvis, [facility] ) 5. Lobulated contours to the kidneys compatible with cortical scarring (CT of abdomen and pelvis, [facility] 08/26/2017) 6. Possible cholelithiasis without bile duct dilatation or pancreatic pathology (CT of abdomen and pelvis, [facility] 08/26/2017) 7. Mildly fatty infiltrated liver and mild splenomegaly (CT of abdomen and pelvis, [facility] 08/26/2017) 8. Iron deficiency anemia 9. Albumin 2.8 (after resuscitation) Subjective: No major events or complaints other than above and reports overall feeling the same without significant improvement in the pain in the right lower quadrant; reports the pain to be under control with medications; no n/v/d; no sob or cp; + bowel activity; + activity Objective: Vitals: See below Exam: GENERAL: On exam, the patient was laying in bed and appeared to be comfortable and in no acute distress. ABDOMEN: Soft, minimally tender to palpation in the right lower quadrant and nondistended. There are no peritoneal signs or guarding. SKIN: Skin appears to be pink and feels warm to touch. NEUROLOGIC: Patient is awake, alert, and follows commands appropriately. Exam/Review of Systems Vital Signs Vitals Vital Signs Date Time Temp Pulse Resp B/P Pulse Ox O2 Delivery O2 Flow Rate FiO2 08/29/17 14:03 98.0 64 18 152/63 97 08/26/17 20:00 Room Air 08/26/17 16:09 2 Intake and Output 08/28/17 08/28/17 08/29/17 15:00 23:00 07:00 Intake Total 350 ml 1435 ml 1050 ml Balance 350 ml 1435 ml 1050 ml Results Result Diagram: 08/29/17 1126 08/29/17 1126 MINESH RUSSELL M.D. Aug 29, 2017 16:47
[2017-08-29] MEDS ORDERED: POTASSIUM CHLORIDE (SR) 20 MEQ TAB PO ONE (17:30)
[2017-08-29 20:00] VITALS: BP 114/63; RESP 20
[2017-08-30] VITALS (18 sets, daily range): BP systolic 112–173; BP diastolic 61–86; PULSE 68–86; RESP 16–24
[2017-08-30] MEDS: PIPER-TAZO 3.375 GM IV (PMX) 50 ML IVPB SCH ×3 (00:35→12:58)
[2017-08-30] MEDS: POTASSIUM CHLORIDE 40 MEQ in SOD CHLORIDE 0.9% 1,000 ML IV SCH ×2 (05:03→14:06)
[2017-08-30 05:57] LABS: ABNORMAL IP MESSAGE 1; BASOPHIL # 0.1 10^3/ul (0.0-0.1); BASOPHILS % 0.4 % (0.0-2.0); EOSINOPHILS # 0.1 10^3/ul (0.0-0.5); HEMATOCRIT 31.4 % (37.0-47.0); HEMOGLOBIN 9.3 g/dl (12.0-16.0); LYMPHOCYTES # 2.3 10^3/ul (0.8-2.9); LYMPHOCYTES % 17.2 % (15.0-51.0); MEAN CORPUSCULAR HEMOGLOBIN 19.6 pg (29.0-33.0); MEAN CORPUSCULAR HGB CONC 29.6 g/dl (32.0-37.0); MEAN CORPUSCULAR VOLUME 66.1 fl (82.0-101.0); MEAN PLATELET VOLUME 9.9 fl (7.4-10.4); MONOCYTES % 7.8 % (0.0-11.0); NEUTROPHIL # 9.7 10^3/ul (1.6-7.5); NEUTROPHILS % 72.8 % (39.0-77.0); PLATELET COUNT 382 10^3/UL (140-415); RED BLOOD COUNT 4.75 10^6/ul (4.20-5.40); RED CELL DISTRIBUTION WIDTH 27.6 % (11.5-14.5); WHITE BLOOD COUNT 13.3 10^3/ul (4.8-10.8)
[2017-08-30 06:20] LABS: INR 1.07; PROTIME 13.9 Sec (12.2-14.2); PT RATIO 1.1
[2017-08-30 06:21] LABS: PARTIAL THROMBOPLASTIN TIME 35.4 Sec (25.0-35.0)
[2017-08-30 06:24] LABS: ALBUMIN 2.9 g/dl (3.3-4.9); ALBUMIN/GLOBULIN RATIO 0.85; BILIRUBIN,INDIRECT 0.2 mg/dl (0-1.1); BILIRUBIN,TOTAL 0.2 mg/dl (0.2-1.3); CALCIUM 8.6 mg/dl (8.4-10.2); CREATININE 0.8 mg/dl (0.44-1.00); POTASSIUM 3.8 mmol/L (3.5-5.1); TOTAL PROTEIN 6.3 g/dl (6.1-8.1)
[2017-08-30 06:29] LABS: MAGNESIUM 1.8 mg/dl (1.7-2.5); PHOSPHORUS 4.3 mg/dl (2.5-4.9)
[2017-08-30 06:53] LABS: POSITIVE DIFF @See below
[2017-08-30] MEDS ORDERED: PROPOFOL 200 MG INJ ONE (07:00)
[2017-08-30] MEDS: FAMOTIDINE 20 MG INJ IV SCH ×2 (08:14→20:54)
--- NOTE | 2017-08-30 12:10 | PN ---
Date/Time of Note Date/Time of Note DATE: 08/30/17 TIME: 12:01 Assessment/Plan VTE Prophylaxis VTE Prophylaxis Intervention: SCD's Lines/Catheters IV C[facility]ter Type (from [facility]): Saline Lock Urinary Cath still in place: No Assessment/Plan Assessment/Plan 27-year-old female with 1. Presumed acute appendicitis, ruptured, on IV antibiotics and IV fluids. Patient reports that she still having ongoing right lower quadrant pain. WBC trending down as of yesterday, labs are pending this morning. For now on medical management with IV antibiotics. No abscess or fluid collection to drain. Appreciate recommendations from Dr. Cantrell, plan for OR today. Continue IV antibiotics, continue IV fluids, currently NPO Continue pain control 2. Positive blood culture, 1/2 with coag negative Staphylococcus, most likely contaminant, repeat blood cultures are negative so far, vancomycin has been discontinued, continue broad-spectrum coverage with Zosyn. 3. Acute on chronic anemia, iron deficient, secondary to menometrorrhagia, pelvic ultrasound showing no ureteral fibroids. No acute bleeding noted currently. 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 FOB negative... Status post Ferrlicit/IV iron. 4. Episode of chest pressure and mild sinus tachycardia yesterday, CT angiogram of chest negative for PE or any acute findings. Patient denies chest pressure this morning. 5. Morbid obesity. Prophylaxis: Pepcid for GI prophylaxis, SCDs for DVT prophylaxis Disposition: OR today. Subjective 24 Hr Interval Summary Free Text/Dictation Patient with WBC up to 13 today, she is scheduled for OR today for laparoscopy appendectomy at least. Continue IV antibiotics. Patient currently n.p.o. Exam/Review of Systems Vital Signs Vitals Vital Signs Date Time Temp Pulse Resp B/P Pulse Ox O2 Delivery O2 Flow Rate FiO2 08/30/17 08:25 98.1 61 18 136/76 95 08/26/17 20:00 Room Air 08/26/17 16:09 2 Intake and Output 08/29/17 08/29/17 08/30/17 15:00 23:00 07:00 Intake Total 410 ml 830 ml 720 ml Balance 410 ml 830 ml 720 ml Exam Constitutional: alert, oriented, well developed Respiratory: clear to auscultation, normal air movement Cardiovascular: nl pulses, regular rate and rhythm Gastrointestinal: soft, tender (Right lower quadrant) Musculoskeletal: nl extremities to inspection Extremities: normal pulses Neurological: SCREW MACHINE SETTER II-XII intact, nl mental status, nl speech, nl strength Results Result Diagram: 08/30/1753508/30/17535 Results 24 hrs Laboratory Tests Test 08/29/17 22:58 08/30/17 05:36 Stool Occult Blood NEGATIVE White Blood Count 13.3 H Red Blood Count 4.75 Hemoglobin 9.3 L Hematocrit 31.4 L Mean Corpuscular Volume 66.1 L Mean Corpuscular Hemoglobin 19.6 L Mean Corpuscular Hemoglobin Concent 29.6 L Red Cell Distribution Width 27.6 H Platelet Count 382 Mean Platelet Volume 9.9 Neutrophils % 72.8 Lymphocytes % 17.2 Monocytes % 7.8 Eosinophils % 1.0 Basophils % 0.4 Nucleated Red Blood Cells % 0.0 Neutrophils # 9.7 H Lymphocytes # 2.3 Monocytes # 1.0 H Eosinophils # 0.1 Basophils # 0.1 Nucleated Red Blood Cells # 0.0 Prothrombin Time 13.9 Prothrombin Time Ratio 1.1 INR International Normalized Ratio 1.07 Activated Partial Thromboplast Time 35.4 H Sodium Level 145 H Potassium Level 3.8 Chloride Level 110 Carbon Dioxide Level 26 Anion Gap 13 Blood Urea Nitrogen 5 L Creatinine 0.80 Glucose Level 88 Lactic Acid Level 0.9 Calcium Level 8.6 Phosphorus Level 4.3 Magnesium Level 1.8 Total Bilirubin 0.2 Direct Bilirubin 0.00 Indirect Bilirubin 0.2 Aspartate Amino Transf (AST/SGOT) 20 Alanine Aminotransferase (ALT/SGPT) 23 Alkaline Phosphatase 84 Total Protein 6.3 # Albumin 2.9 L Globulin 3.40 H Albumin/Globulin Ratio 0.85 Medications Medications Current Medications Piperacillin Sod/ Tazobactam Sod (Zosyn 3.375gm/ 50 ml (Pmx)) 50 ml @ 100 mls/ hr Q6 IVPB Last administered on 08/30/17 05:49; Admin Dose 100 MLS/HR; Start 08/27/17 at 00:00 Acetaminophen (Tylenol Tab) 650 mg Q4H PRN PO PAIN AND OR ELEVATED TEMP Last administered on 08/27/17 08:30; Admin Dose 650 MG; Start 08/26/17 at 21:30 Ondansetron HCl (Zofran Inj) 4 mg Q4H PRN IV NAUSEA AND/OR VOMITING Last administered on 08/27/17 11:17; Admin Dose 4 MG; Start 08/26/17 at 21:30 Morphine Sulfate 2 mg 2 mg Q2H PRN IV pain Last administered on 08/27/17 10: 34; Admin Dose 2 MG; Start 08/26/17 at 21:30; Status Future Hold Potassium Chloride/Sodium Chloride (KCl/NS) 1,020 ml @ 125 mls/hr Q8H10M IV Last administered on 08/30/17 05:03; Admin Dose 125 MLS/HR; Start 08/27/17 at 13:30 Famotidine (Pepcid Iv) 20 mg BID IV Last administered on 08/29/17 20:58; Admin Dose 20 MG; Start 08/27/17 at 13:30 PJ PAULINO Aug 30, 2017 12:10
[2017-08-30] MEDS ORDERED: POLYMYXIN/BACITRACIN 1L IRRIG ONE (13:28)
[2017-08-30] MEDS ORDERED: BUPIVACAINE 0.5%/EPI (SDV) 30 ML INJ ONE (13:28)
[2017-08-30] MEDS ORDERED: ROCURONIUM 50 MG INJ ONE (14:35)
[2017-08-30] MEDS ORDERED: PROPOFOL 20 ML ONE (14:35)
[2017-08-30] MEDS ORDERED: MIDAZOLAM 1 MG/ML 2 ML INJ ONE (14:35)
[2017-08-30] MEDS ORDERED: SUCCINYLCHOLINE CHLORIDE 100 MG/5 ML SYG IV ONE (14:35)
[2017-08-30] MEDS ORDERED: FENTAnyl 50 MCG/ML VIAL ONE (14:35)
[2017-08-30] MEDS ORDERED: LIDOCAINE 2% (SDV) 5 ML INJ ONE (14:35)
--- NOTE | 2017-08-30 14:41 | HPN ---
Date/Time of Note Date/Time of Note DATE: 08/30/17 TIME: 14:41 Interval H&P Admission Note Pt. seen H&P reviewed: No system changes Pt. seen H&P reviewed. No system changes (I attest that I have seen and examined the patient and reviewed the operation in detail, as well as its risks , benefits and alternatives of the operation). I attest that I have seen and examined the patient and reviewed in detail the operation, and its associated risks, benefits and alternative. I have answered all the patient's questions to the best of my ability and the patient wishes to proceed. Please refer to rest of electronic medical record for additional updates. MINESH RUSSELL M.D. Aug 30, 2017 14:41
[2017-08-30] MEDS ORDERED: ONDANSETRON 4 MG INJ ONE (14:59)
[2017-08-30] MEDS ORDERED: FAMOTIDINE 20 MG INJ ONE (14:59)
[2017-08-30] MEDS ORDERED: DEXAMETHASONE 4 MG/ML 1 ML INJ ONE (15:00)
[2017-08-30] MEDS ORDERED: KETOROLAC 30 MG INJ ONE (17:26)
[2017-08-30] MEDS ORDERED: SUGAMMADEX SODIUM 200 MG/2 ML VIAL IV ONE (17:26)
[2017-08-30] MEDS ORDERED: HYDROmorphONE 2 MG/ML SYG ONE (17:30)
[2017-08-30] MEDS ORDERED: ONDANSETRON 4 MG INJ IV PRN (18:00)
[2017-08-30] MEDS ORDERED: HYDROCODONE/APAP (5/325) TAB PO PRN ×2 (18:00)
[2017-08-30] MEDS ORDERED: DIPHENHYDRAMINE 50 MG INJ IV PRN (18:00)
[2017-08-30] MEDS ORDERED: hydrALAzine 20 MG INJ IV PRN (18:00)
[2017-08-30] MEDS ORDERED: FENTAnyl 50 MCG/ML VIAL IV PRN ×3 (18:00)
[2017-08-30] MEDS ORDERED: HYDROmorphONE (0.2 MG/ML) 10ML SYG IV PRN ×3 (18:00)
[2017-08-30] MEDS ORDERED: LABETALOL HCL 20MG INJ IV PRN (18:00)
[2017-08-30] MEDS ORDERED: MEPERIDINE 25 MG INJ IV PRN (18:00)
[2017-08-30] MEDS ORDERED: PROCHLORPERAZINE 10 MG INJ IV PRN (18:00)
--- NOTE | 2017-08-30 18:07 | OPR ---
Date/Time of Note Date/Time of Note DATE: 08/30/17 TIME: 18:07 Operative Report Free Text/Dictation [facility] INPATIENT OPERATIVE NOTE PLACE OF SERVICE: [facility] DATE OF SURGERY: 08/30/2017 PREOPERATIVE DIAGNOSIS: 1. Acute appendicitis, possibly perforated 2. BMI 41.4 3. C-sections 2 4. Ectopic with removal of right ovary and spontaneous 2010 5. Ovarian cyst (3.9 cm left adnexal cyst on CT of abdomen and pelvis, [facility] ) 6. Lobulated contours to the kidneys compatible with cortical scarring (CT of abdomen and pelvis, [facility] 08/26/2017) 7. Possible cholelithiasis without bile duct dilatation or pancreatic pathology (CT of abdomen and pelvis, [facility] 08/26/2017) 8. Mildly fatty infiltrated liver and mild splenomegaly (CT of abdomen and pelvis, [facility] 08/26/2017) 9. Iron deficiency anemia 10. Albumin 2.8 (after resuscitation) POSTOPERATIVE DIAGNOSIS: 1. Chronic appendicitis, severe; not acutely perforated 2. BMI 41.4 3. C-sections 2 4. Ectopic with removal of right ovary and spontaneous 2010 5. Ovarian cyst (3.9 cm left adnexal cyst on CT of abdomen and pelvis, [facility] ) 6. Lobulated contours to the kidneys compatible with cortical scarring (CT of abdomen and pelvis, [facility] 08/26/2017) 7. Possible cholelithiasis without bile duct dilatation or pancreatic pathology (CT of abdomen and pelvis, [facility] 08/26/2017) 8. Mildly fatty infiltrated liver and mild splenomegaly (CT of abdomen and pelvis, [facility] 08/26/2017) 9. Iron deficiency anemia 10. Albumin 2.8 (after resuscitation) OPERATION: 1. Laparoscopic appendectomy (modifier 22) 2. Laparoscopic lysis of adhesions SURGEON: Minesh Russell M.D. COUNTERINTELLIGENCE AGENT: None ANESTHESIA: General endotracheal tube anesthesia ANESTHESIOLOGIST: Lynn Nielsen M.D. BRIEF SUMMARY: An otherwise uncomplicated but difficult laparoscopic appendectomy was performed with findings of severe chronic appendicitis without evidence of acute perforation and presence of significant adhesions in the pelvis. Updated clinical summary: A very-pleasant 27-year-old lady with comorbidity of BMI 41.4 and prior C- sections, presenting with a picture concerning for possible ruptured appendicitis. Pain remained unchanged after a few days in the hospital. Chest pain on 08/28/2017 at night led to a CT angiogram that did not demonstrate any evidence of pulmonary embolism or other major pathology. Comorbidities: 1. BMI 41.4 2. C-sections 2 3. Ectopic with removal of reportedly left ovary per patient's report (note that we see a cystic structure in the pelvis which could be the left ovary) and spontaneous 2010 4. Ovarian cyst (3.9 cm left adnexal cyst on CT of abdomen and pelvis, [facility] ) 5. Lobulated contours to the kidneys compatible with cortical scarring (CT of abdomen and pelvis, [facility] 08/26/2017) 6. Possible cholelithiasis without bile duct dilatation or pancreatic pathology (CT of abdomen and pelvis, [facility] 08/26/2017) 7. Mildly fatty infiltrated liver and mild splenomegaly (CT of abdomen and pelvis, [facility] 08/26/2017) 8. Iron deficiency anemia 9. Albumin 2.8 (after resuscitation) BRIEF HISTORY: The patient is a very pleasant 19-year-old lady with above- mentioned comorbidities who presented with a picture that was possibly pointing towards appendix as the cdl b driver of the clinical presentation, but also was complicated by prior histories and significant anemia that had required multiple units of blood transfusions. Because of her history of ovarian issues and surgeries in the pelvis in the past, we decided to do further workup with pelvic and right lower quadrant ultrasounds in addition to the CT scan that the patient had. There was only trace fluid in the pelvis and this pointed more towards a phlegmonous appendicitis. I had discussed the case in detail with interventional radiology and we all agreed that there was no drainable fluid that could potentially be managed with percutaneous drainage. We attempted to manage the patient without an operation for a few days with IV antimicrobials as well as pain medications. The patient continued to have similar pain in the right lower quadrant. Patient's low hemoglobin eventually responded and remained stable after multiple units of blood transfusions. She also had a negative guaiac test which made it less likely that the patient was losing blood in her GI tract. After extensive discussions with the patient and family. We will decided that at this point, the most expeditious way to resolve this issue was to at least take a look laparoscopically in the abdominal cavity and see if there are issues that we can take care of surgically and expedite patient's recovery. We reviewed the operation in detail as well as the risks, benefits, alternatives, and expected outcomes of this operation. After careful consideration of all the risks, benefits, and alternatives, the patient and family appeared to understand those risks and wished to proceed with surgery. For a detailed report of my consultation with patient and family, please refer to my separate consultation note. STATEMENT OF THE INFORMED CONSENT: The patient and family appeared to understand the risks of the operation to include, but not be limited to risk of postoperative pain and scar tissue, possible infection or bleeding requiring other interventions such as opening the wound, placement of drainage catheters, or other operative interventions; possible injury to surrounding to structures including bowel, bladder, bile duct, or blood vessels, or solid organs such as liver, kidney, or pancreas requiring other interventions or procedures; possible leakage of bowel from anastomotic sites or suture lines causing significant increase in morbidity and mortality and requiring multiple interventions including but not limited to, placement of drainage catheters, imaging studies, as well as operative interventions; possible other source of sepsis such as urinary tract infections or pneumonias, or other sources of potentially life threatening problems such as deep venous thrombus formation causing pulmonary embolism, myocardial arrhythmias and infarctions, and even . After careful consideration of all their options, the patient and family appeared to understand and wished to proceed with surgery. DESCRIPTION OF PROCEDURE: After obtaining informed consent, the patient was brought into the operating room and was placed in a normal supine position, where successful general endotracheal tube anesthesia was performed. Intravenous access was already in place and intravenous antimicrobials had been appropriately chosen and dosed prior to the operation. The patient's abdominal skin was prepped and draped from the nipple line down to the level of the upper thighs in the usual sterile fashion. We then called a surgical time-out where the patient's identification, date of , nature of the operation, allergies , presence of intravenous antimicrobials, presence of needed equipment, and any other concerns were reviewed and agreed upon by all members of the operating room team. We then started the operation by placing a 5 mm skin incision in the left lower quadrant and then introduced a 5 mm [employer] trocar into the peritoneal space, visualizing all the layers of the abdominal wall as we entered. Note that there was no indication of any injury to underlying structures with our entry into the peritoneal space. We insufflated the abdominal cavity to a maximum pressure of 15 mmHg and again inspected the area of insertion and ensured no obvious injury to underlying structures prior to inspecting the abdominal cavity and showing no obvious pus, bowel contents, or other abnormal features. There was evidence for significant omental adhesions onto the pelvis and the lower midline abdominal wall. We could not see the appendix very well. Because of lack of adequate space, I decided to alter the placement of the next trochars in order to strategically position a camera and be able to see the right lower quadrant. For this reason, we injected the umbilical skin area with 0.5% Marcaine with epinephrine and used a needle to see if we can get in through the fascia safely. There seem to be a small window, but when I try to see if I can insert the trocar in this space, I did not have adequate visualization and therefore stopped attempting at this site. Note that we did not breach the fascia with a trocar. I chose a spot a bit more cephalad along the midline and injected this site with Marcaine and made a 5 mm skin incision and was able to place a 5 mm applied medical trocar into the peritoneal space under direct visualization. We also injected the left upper quadrant region with half percent Marcaine with epinephrine and placed another 5 mm trocar in this space. We then spent approximately 15 minutes of it very gentle adhesio lysis in order to have better visualization of the right lower quadrant. In order to continue our adhesio lysis, I eventually had to also place another 5 mm applied medical trocar into the right lower quadrant under direct visualization and without any complications. We therefore had four 5 mm trochars at this point with a fifth skin incision in the umbilicus without a trocar in it. With our trochars in place and after a total of 30 minutes of adhesio lysis, I was able to evaluate the right lower quadrant. There is seem to be a strong inflammatory process that happened in the midline lower pelvis where the omentum was densely adherent to it and there was essentially obliteration of that space. The area appeared to be dense and not easily dissectible. I was able to see that the cecum was visible and it was pliable. We could also see a structure that appeared to be the terminal ileum going into the cecum, but fairly densely adherent onto the retroperitoneum. For a moment, I was considering stopping the operation at this point and treating the patient solely with antimicrobial therapy and pain medications. However after persistence of bed, I realize that there was a cordlike structure which was consistent with a chronically inflamed and scarred appendix that was densely adherent onto the surrounding structures. With very judicious use of blunt dissection and extremely careful use of cautery, I was able to delineate what appeared to be a remarkably untouched base going into the colon with the appendix turned cephalad and adhered onto the medial aspect of the cecum with the tip obscured by mesenteric attachments. I continued this dissection until I was satisfied that we had a structure consistent with that of the appendix and we had circumferentially isolated the neck of it before changing the right upper quadrant 5 mm trocar into a 12 mm trocar after enlarging the skin using a scalpel and placing the trocar in place, and then transecting across the junction of the appendix into the cecum with one firing of the vascular (white) load of the [place] 60 mm stapler. The stapler fired without any technical difficulties and the staple rows were nice and supervisor powdered sugar. We repeated another firing of the same vascular load onto the body of the appendix away from the cecum and this allowed us to completely transect this area away from the cecum. We could see that the terminal ileum was going into the colon without any narrowing and the staple rows were hemostatic without any evidence of any leakage. We were then able to deliver the appendix through the 12 mm trocar site inside of an EndoCatch bag without having to enlarge the fascial defect and without contaminating the wound. The specimen was sent to Pathology for further analysis. We then ensured adequate hemostasis and bowel stasis, close the 12 mm trocar site using a [id number] 0 Vicryl suture that we placed with the assistance of the Endo Close device, removed all our equipment including the pneumoperitoneum from the abdominal cavity prior to washing the wounds with copious amounts of normal saline, injecting the initial insertion point of the trocar with 0.5% Marcaine with epinephrine, and then closing the skin using interrupted 4-0 Monocryl sutures. Light dressing was then applied. At the end of the operation, both the sponge count and needle count were reportedly correct x2. The patient tolerated the procedure without any reported complications. Please note that this operation qualifies for modifier 22 given the degree of difficulty of the case as well as the complexity of the decision-making. ESTIMATED BLOOD LOSS: Less than 10 mL. BLOOD OR BLOOD PRODUCT TRANSFUSIONS: None to my knowledge. SPECIMENS: 1. Appendix GRAFTS: None COMPLICATIONS: None. DISPOSITION: Recovery area. Disclaimers: 1. Inadvertent spelling and grammatical errors are likely due to electronic health record (EHR)/dictation software used and do not reflect on the quality of delivered patient care. 2. The electronic timestamp recorded on this note does not necessarily reflect the actual date and time of the visit or the service. 3. Portions of this note may have been created through electronic templates and computer algorithms that might bring in information either from the system or from other physicians and providers. Please note that such information may or may not contain errors, the occurrence of which are outside of my control. In general (but not always) this happens either in the beginning or at the end of the note. The portion of the note that I have created are generally done in 1 continuous block of text, flanked at the beginning and at the end by " ", and entered into one field in the EHR. 4. There may be other unanticipated errors in the note that are outside of my control. I can only attest to the portions of the note that I have created. MINESH RUSSELL M.D. Aug 30, 2017 18:07
[2017-08-30] MEDS: HYDROmorphONE 1 MG/ML SYG IV PRN (21:01)
[2017-08-31] MEDS: HYDROmorphONE 0.5 MG/0.5 ML SYG IV PRN ×6 (00:02→17:52)
[2017-08-31] MEDS: DIPHENHYDRAMINE 50 MG INJ IV PRN ×4 (00:45→21:47)
[2017-08-31 02:07] VITALS: BP 128/74; RESP 16
[2017-08-31 06:23] LABS: ABNORMAL IP MESSAGE 1; BASOPHILS % 0.2 % (0.0-2.0); EOSINOPHILS % 0.1 % (0.0-7.0); HEMATOCRIT 32.1 % (37.0-47.0); HEMOGLOBIN 9.3 g/dl (12.0-16.0); LYMPHOCYTES # 1.8 10^3/ul (0.8-2.9); LYMPHOCYTES % 11.6 % (15.0-51.0); MEAN CORPUSCULAR HEMOGLOBIN 19.6 pg (29.0-33.0); MEAN CORPUSCULAR VOLUME 67.7 fl (82.0-101.0); MONOCYTE # 1.1 10^3/ul (0.3-0.9); NEUTROPHIL # 12.1 10^3/ul (1.6-7.5); NEUTROPHILS % 80.2 % (39.0-77.0); PLATELET COUNT 350 10^3/UL (140-415); RED BLOOD COUNT 4.74 10^6/ul (4.20-5.40); WHITE BLOOD COUNT 15.1 10^3/ul (4.8-10.8)
[2017-08-31 06:37] LABS: INR 1.06; PROTIME 13.8 Sec (12.2-14.2); PT RATIO 1.1
[2017-08-31 06:38] LABS: PARTIAL THROMBOPLASTIN TIME 35.2 Sec (25.0-35.0)
[2017-08-31 07:04] LABS: MAGNESIUM 1.9 mg/dl (1.7-2.5); PHOSPHORUS 4.8 mg/dl (2.5-4.9)
[2017-08-31 07:25] LABS: POSITIVE DIFF @See below
[2017-08-31 07:34] LABS: ALBUMIN 3.3 g/dl (3.3-4.9); ALBUMIN/GLOBULIN RATIO 0.89; CALCIUM 8.8 mg/dl (8.4-10.2); CREATININE 0.76 mg/dl (0.44-1.00)
[2017-08-31 07:39] VITALS: BP 133/68; RESP 16
[2017-08-31] MEDS: FAMOTIDINE 20 MG INJ IV SCH (08:15)
[2017-08-31] MEDS: ENOXAPARIN 40 MG/0.4 ML SYG SC SCH (08:29)
--- NOTE | 2017-08-31 10:26 | PN ---
Date/Time of Note Date/Time of Note DATE: 08/31/17 TIME: 07:17 Assessment/Plan Lines/Catheters IV Catheter Type (from Nrsg): Saline [place] in Place (from Nrsg): No Assessment/Plan Assessment/Plan [facility] Progress Note Date of Service: 08/31/2017 Location of Service: [facility] second floor [facility] Today's Assessment & Plan: Overall stable with incisional pain, but reports no longer feeling the pain in the RLQ. Too early to tell if the operation was successful, but no indication of major post operative complication or wound issues. Happy about her progress. Possibly d/c planning for tomorrow. Explained to patient ( sleep in the room) and answered all questions. Patient appeared to understand and agreed with plans. Previous assessments that applies today: A very-pleasant 27-year-old lady with comorbidity of BMI 41.4 and prior C- sections, presenting with a picture concerning for possible ruptured appendicitis. No drainable abscess noted on CT scan per my discussions with Dr. Del Cid from interventional radiology. With above assessment, I've recommended the followin. D/c antimicrobial coverage 2. Keep in-house for today 3. Regular diet 4. Labs in a.m. 5. Possible d/c home tomorrow Thank you very much for having me involved in the care of this very pleasant patient and wonderful family. If you have any questions, please feel free to contact me at [phone]. Nature of presenting problem: High severity Please note that, given the multiple number of diagnoses or management options, the moderate amount and/or complexity of data needed to be reviewed, and high risk of complications and/or morbidity or mortality, this qualifies as moderate complexity type of decision-making. Disclaimers: 1. Inadvertent spelling and grammatical errors are likely due to electronic health record (EHR)/dictation software used and do not reflect on the quality of delivered patient care. 2. The electronic timestamp recorded on this note does not necessarily reflect the actual date and time of the visit or the service. 3. Portions of this note may have been created through electronic templates and computer algorithms that might bring in information either from the system or from other physicians and providers. Please note that such information may or may not contain errors, the occurrence of which are outside of my control. In general (but not always) this happens either in the beginning or at the end of the note. The portion of the note that I have created are generally done in 1 continuous block of text, flanked at the beginning and at the end by " ", and entered into one field in the EHR. 4. There may be other unanticipated errors in the note that are outside of my control. I can only attest to the portions of the note that I have created. Updated clinical summary: A very-pleasant 27-year-old lady with comorbidity of BMI 41.4 and prior C- sections, presenting with a picture concerning for possible ruptured appendicitis. Pain remained unchanged after a few days in the hospital. Chest pain on 08/28/2017 at night led to a CT angiogram that did not demonstrate any evidence of pulmonary embolism or other major pathology. S/p an otherwise uncomplicated but difficult laparoscopic appendectomy [facility] 08/30/17 with findings of severe chronic appendicitis without evidence of acute perforation and presence of significant adhesions in the pelvis Comorbidities: 1. Chronic appendicitis, severe; not acutely perforated; s/p an otherwise uncomplicated but difficult laparoscopic appendectomy [facility] 08/30/17 with findings of severe chronic appendicitis without evidence of acute perforation and presence of significant adhesions in the pelvis 2. BMI 41.4 3. C-sections 2 4. Ectopic with removal of right ovary and spontaneous 2010 5. Ovarian cyst (3.9 cm left adnexal cyst on CT of abdomen and pelvis, [facility] ) 6. Lobulated contours to the kidneys compatible with cortical scarring (CT of abdomen and pelvis, [facility] 08/26/2017) 7. Possible cholelithiasis without bile duct dilatation or pancreatic pathology (CT of abdomen and pelvis, [facility] 08/26/2017) 8. Mildly fatty infiltrated liver and mild splenomegaly (CT of abdomen and pelvis, [facility] 08/26/2017) 9. Iron deficiency anemia 10. Albumin 2.8 (after resuscitation) Subjective: No major events or complaints overnight; incisional pain noted; reports no longer feeling the original pain in the right lower quadrant; reports the pain to be under control with medications; no n/v/d; no sob or cp; + bowel activity; + activity Objective: Vitals: See below Exam: GENERAL: On exam, the patient was laying in bed and appeared to be comfortable and in no acute distress. ABDOMEN: Soft, minimally tender to palpation in the right lower quadrant and nondistended. Incision dressings c/d/i w/o any obvious underlying e/e/d/h. There are no peritoneal signs or guarding. SKIN: Skin appears to be pink and feels warm to touch. NEUROLOGIC: Patient is awake, alert, and follows commands appropriately. Exam/Review of Systems Vital Signs Vitals Vital Signs Date Time Temp Pulse Resp B/P Pulse Ox O2 Delivery O2 Flow Rate FiO2 08/31/17 07:39 98.6 60 16 133/68 99 08/30/17 18:47 Room Air Intake and Output 08/30/17 08/30/17 08/31/17 15:00 23:00 07:00 Intake Total 300 ml 1600 ml Output Total 25 ml Balance 300 ml 1575 ml Results Result Diagram: 08/31/17 0517 08/31/17 0517 MINESH RUSSELL M.D. Aug 31, 2017 10:26
[2017-08-31 15:03] VITALS: BP 101/50; RESP 16
[2017-08-31 16:11] LABS: ADD UMIC YES; UR ASCORBIC ACID NEGATIVE (NEGATIVE); UR BILIRUBIN (Dip) NEGATIVE (NEGATIVE); UR BLOOD (Dip) 1+ mg/dL (NEGATIVE); UR CLARITY CLEAR (CLEAR); UR COLOR YELLOW (YELLOW); UR GLUCOSE (Dip) NEGATIVE (NEGATIVE); UR KETONES (Dip) NEGATIVE (NEGATIVE); UR LEUKOCYTE ESTERASE (Dip) TRACE Leu/ul (NEGATIVE); UR MUCUS FEW /HPF (NONE SEEN); UR NITRITE (Dip) NEGATIVE (NEGATIVE); UR RBC 3 /HPF (0-5); UR SQUAMOUS EPITHELIAL CELL FEW /HPF (FEW); UR TOTAL PROTEIN (Dip) NEGATIVE (NEGATIVE); UR UROBILINOGEN (Dip) NEGATIVE (NEGATIVE)
[2017-08-31 19:25] VITALS: BP 125/65; RESP 20
[2017-08-31] MEDS: HYDROmorphONE 1 MG/ML SYG IV PRN ×2 (20:32→23:12)
[2017-08-31] MEDS: FAMOTIDINE 20 MG TAB PO SCH (20:35)
--- NOTE | 2017-08-31 21:01 | PN ---
Date/Time of Note Date/Time of Note DATE: 08/31/17 TIME: 20:46 Assessment/Plan VTE Prophylaxis VTE Prophylaxis Intervention: SCD's Lines/Catheters IV [facility]ter [facility] (from [facility] Saline Lock Urinary Cath still in place: No Assessment/Plan Assessment/Plan [facility] 1. 27-year-old woman s/p surgical repair for a ruptured acute appendicitis. She had a positive blood culture tonight with alpha-hemolytic strep, coupled with a febrile appearance and an elevated WBC (15.1 k/ul) off antibiotics ( vancomycin, Zosyn) since yesterday. Ongoing right lower quadrant pain. * Started on penicillin IV q6h * Acidophilus probiotics BID * Continue IV fluids for now * Morphine sensitivity; continued proactive pain control 2. Previous positive blood culture, 1/2 with coagulase-negative Staphylococcus. Possible contaminant. 3. Acute on chronic anemia, iron deficient, secondary to menometrorrhagia, pelvic ultrasound showing no ureteral fibroids. No acute bleeding noted currently. Hemoglobin stable at 9.3 * Patient will have to follow-up with her [employer] doctor. 4. Episode of chest pressure and mild sinus tachycardia two days ago. CT angiogram of chest was negative for PE or any acute findings. No continued chest symptoms. 5. Vaginal yeast infection, likely secondary to antibiotic use. 6. Prophylaxis: Pepcid for GI prophylaxis, SCDs for DVT prophylaxis 7. Disposition: Home once she is passing flatus/stool, with pain diminished and the bacteremia adequately treated. Renee Ybarra MD PhD [phone] Subjective 24 Hr Interval Summary Free Text/Dictation She complained of considerable continued RLQ pain, but no nausea. No flatus or bowel movements yet. No dyspnea now, but she has been using oxygen on occasion. Exam/Review of Systems Vital Signs Vitals Vital Signs Date Time Temp Pulse Resp B/P Pulse Ox O2 Delivery O2 Flow Rate FiO2 08/31/17 19:25 99.0 81 20 125/65 95 08/30/17 18:47 Room Air Intake and Output 08/30/17 08/30/17 08/31/17 14:59 22:59 06:59 Intake Total 350 ml 1600 ml Output Total 25 ml Balance 350 ml 1575 ml Exam Constitutional: Tired and moderately uncomfortable-appearing. HEENT: Normal pupils, no conjunctivitis. Respiratory: Clear to auscultation, good air movement Cardiovascular: Symmetric pulses, regular rhythm, normal rate, good peripheral perfusion Gastrointestinal: soft, mild tenderness diffusely but with no rebound or guarding Musculoskeletal: nl extremities to inspection. No calf tenderness or nodularity. Neurological: ORCHARD PRUNER II-XII intact, nl mental status, nl speech, nl strength Results Result Diagram: 08/31/17 0517 08/31/17 0517 Results 24 hrs Laboratory Tests Test 08/31/17 05:17 08/31/17 14:45 White Blood Count 15.1 H Red Blood Count 4.74 Hemoglobin 9.3 L Hematocrit 32.1 L Mean Corpuscular Volume 67.7 L Mean Corpuscular Hemoglobin 19.6 L Mean Corpuscular Hemoglobin Concent 29.0 L Red Cell Distribution Width 28.0 H Platelet Count 350 Mean Platelet Volume Neutrophils % 80.2 H Lymphocytes % 11.6 L Monocytes % 7.0 Eosinophils % 0.1 Basophils % 0.2 Nucleated Red Blood Cells % 0.0 Neutrophils # 12.1 H Lymphocytes # 1.8 Monocytes # 1.1 H Eosinophils # 0.0 Basophils # 0.0 Nucleated Red Blood Cells # 0.0 Prothrombin Time 13.8 Prothrombin Time Ratio 1.1 INR International Normalized Ratio 1.06 Activated Partial Thromboplast Time 35.2 H Sodium Level 144 Potassium Level 4.0 Chloride Level 105 Carbon Dioxide Level 26 Anion Gap 17 H Blood Urea Nitrogen 9 Creatinine 0.76 Glucose Level 82 Lactic Acid Level 1.6 Calcium Level 8.8 Phosphorus Level 4.8 Magnesium Level 1.9 Total Bilirubin 0.0 L Direct Bilirubin 0.00 Indirect Bilirubin 0.0 Aspartate Amino Transf (AST/SGOT) 25 Alanine Aminotransferase (ALT/SGPT) 16 Alkaline Phosphatase 89 B-Type Natriuretic Peptide 367 H Total Protein 7.0 Albumin 3.3 Globulin 3.70 H Albumin/Globulin Ratio 0.89 Urine Color YELLOW Urine Clarity CLEAR Urine pH 7.0 Urine Specific [place] 1.010 Urine Ketones NEGATIVE Urine Nitrite NEGATIVE Urine Bilirubin NEGATIVE Urine Urobilinogen NEGATIVE Urine Leukocyte Esterase TRACE A Urine Microscopic RBC 3 Urine Microscopic WBC 15 H Urine Squamous Epithelial Cells FEW Urine Mucus FEW A Urine Hemoglobin 1+ H Urine Glucose NEGATIVE Urine Total Protein NEGATIVE Medications Medications Current Medications Acetaminophen (Tylenol Tab) 650 mg Q4H PRN PO PAIN AND OR ELEVATED TEMP Last administered on 08/27/17 08:30; Admin Dose 650 MG; Start 08/26/17 at 21:30 Ondansetron HCl (Zofran Inj) 4 mg Q4H PRN IV NAUSEA AND/OR VOMITING Last administered on 08/27/17 11:17; Admin Dose 4 MG; Start 08/26/17 at 21:30 Acetaminophen/ Hydrocodone Bitart ([place] (5/325)) 1 tab Q4H PRN PO PAIN LEVEL 4 -7; Start 08/30/17 at 18:00 Acetaminophen/ Hydrocodone Bitart ([place] (5/325)) 2 tab Q4H PRN PO PAIN LEVEL 7 -10; Start 08/30/17 at 18:00 Hydromorphone HCl (Dilaudid) 0.5 mg Q2 PRN IV PAIN Last administered on 17:52; Admin Dose 0.5 MG; Start 08/30/17 at 18:00 Hydromorphone HCl (Dilaudid) 1 mg Q2 PRN IV PAIN Last administered on 20:32; Admin Dose 1 MG; Start 08/30/17 at 18:00 Sodium Biphosphate/ Sodium Phosphate (Fleet Enema) 133 ml Q12H DC ; Start 09/02 at 00:00 Enoxaparin Sodium (Lovenox) 40 mg DAILY SC Last administered on 08/31/17 08: 29; Admin Dose 40 MG; Start 08/31/17 at 09:00 Docusate Sodium (Colace) 100 mg BID PRN PO CONSTIPATION; Start 09/01/17 at 21: 00 Bisacodyl (Dulcolax Supp) 10 mg Q12H PRN DC CONSTIPATION; Start 09/01/17 at 21 :00 Sodium Biphosphate/ Sodium Phosphate (Fleet Enema) 133 ml Q12H PRN DC CONSTIPATION; Start 09/02/17 at 18:00 Diphenhydramine HCl (Benadryl) 25 mg Q6H PRN IV ITCHING Last administered on 14:43; Admin Dose 25 MG; Start 08/31/17 at 00:30 Famotidine 40 mg 40 mg HS PO Last administered on 08/31/17 20:35; Admin Dose 40 MG; Start 08/31/17 at 21:00 Penicillin G Sodium/Dextrose (Penicillin G Sodium/D5W) 50 ml @ 100 mls/hr Q6 IVPB ; Start 08/31/17 at 21:01 Lactobacillus Acidophilus (Florajen3 Capsule) 1 each BID PO ; Start 08/31/17 at 21:00 NOLBERTO YBARRA M.D. Aug 31, 2017 21:00
[2017-08-31] MEDS: L ACIDOPHIL/B LACTIS/B LONGUM CAPSULE PO SCH (21:46)
[2017-08-31] MEDS: PENICILLIN SODIUM IVPB SCH (21:46)
[2017-08-31] MEDS: DEXTROSE 5% IVPB SCH (21:46)
[2017-09-01 02:00] VITALS: BP 148/77; RESP 20
[2017-09-01] MEDS: DEXTROSE 5% IVPB SCH ×2 (02:18→06:46)
[2017-09-01] MEDS: PENICILLIN SODIUM IVPB SCH ×2 (02:18→06:46)
[2017-09-01] MEDS: HYDROmorphONE 1 MG/ML SYG IV PRN ×2 (02:19→09:21)
[2017-09-01] MEDS: DIPHENHYDRAMINE 50 MG INJ IV PRN ×2 (03:11→09:21)
[2017-09-01 06:11] LABS: ABNORMAL IP MESSAGE 1; BASOPHIL # 0.1 10^3/ul (0.0-0.1); BASOPHILS % 0.4 % (0.0-2.0); EOSINOPHILS # 0.1 10^3/ul (0.0-0.5); HEMATOCRIT 32.9 % (37.0-47.0); HEMOGLOBIN 9.7 g/dl (12.0-16.0); LYMPHOCYTES # 2.4 10^3/ul (0.8-2.9); LYMPHOCYTES % 18.8 % (15.0-51.0); MEAN CORPUSCULAR HEMOGLOBIN 19.9 pg (29.0-33.0); MEAN CORPUSCULAR HGB CONC 29.5 g/dl (32.0-37.0); MEAN CORPUSCULAR VOLUME 67.4 fl (82.0-101.0); MONOCYTE # 0.9 10^3/ul (0.3-0.9); MONOCYTES % 6.9 % (0.0-11.0); NEUTROPHILS % 71.8 % (39.0-77.0); PLATELET COUNT 359 10^3/UL (140-415); RED BLOOD COUNT 4.88 10^6/ul (4.20-5.40); RED CELL DISTRIBUTION WIDTH 28.2 % (11.5-14.5); WHITE BLOOD COUNT 12.5 10^3/ul (4.8-10.8)
[2017-09-01 06:12] LABS: POSITIVE DIFF @See below
[2017-09-01 06:13] LABS: INR 1.04; PARTIAL THROMBOPLASTIN TIME 32.4 Sec (25.0-35.0); PROTIME 13.6 Sec (12.2-14.2); PT RATIO 1.1
[2017-09-01 06:37] LABS: ALBUMIN 3.2 g/dl (3.3-4.9); ALBUMIN/GLOBULIN RATIO 0.8; BILIRUBIN,INDIRECT 0.2 mg/dl (0-1.1); BILIRUBIN,TOTAL 0.2 mg/dl (0.2-1.3); CALCIUM 8.7 mg/dl (8.4-10.2); CREATININE 0.83 mg/dl (0.44-1.00); MAGNESIUM 1.5 mg/dl (1.7-2.5); PHOSPHORUS 4.8 mg/dl (2.5-4.9); POTASSIUM 3.2 mmol/L (3.5-5.1); TOTAL PROTEIN 7.2 g/dl (6.1-8.1)
[2017-09-01 08:33] VITALS: BP 129/87; RESP 16
[2017-09-01] MEDS: L ACIDOPHIL/B LACTIS/B LONGUM CAPSULE PO SCH (09:10)
[2017-09-01] MEDS: ENOXAPARIN 40 MG/0.4 ML SYG SC SCH (09:11)
--- NOTE | 2017-09-01 09:46 | PN ---
Date/Time of Note Date/Time of Note DATE: 09/01/17 TIME: 09:38 Assessment/Plan Lines/Catheters IV Catheter Type (from Nrs): Saline Lock Ramon in Place (from Nrs): No Assessment/Plan Assessment/Plan [facility] Progress Note Date of Service: 09/01/2017 Location of Service: [address] Today's Assessment & Plan: Overall stable. Still with abdominal pain. Post operative paralytic ileus likely. Needs more time inhouse. Discussed need for antimicrobials first with Dr. Ybarra, then confirmed with microbiology team that there were no new organisms other than the one from 08/26 (1 of 2 bottles, thought to be a contaminant). For this reason, I will d/c the antimicrobial. Explained to patient and family and answered all questions. Patient and family appeared to understand and agreed with plans. Previous assessments that applies today: A very-pleasant 27-year-old lady with comorbidity of BMI 41.4 and prior C- sections, presenting with a picture concerning for possible ruptured appendicitis. No drainable abscess noted on CT scan per my discussions with Dr. Del Cid from interventional radiology. With above assessment, I've recommended the followin. D/c antimicrobial coverage 2. Keep in-house for today 3. Cont regular diet 4. Labs in a.m. 5. Increase activity 6. Increase ICS 7. Switch to Percocet since patient insists on not taking [place] 8. D/c IV Benadryl and only PO Benadryl prn allowed 9. Possible KUB in am if no results from aggressive bowel regimen 10. D/c planning ongoing once bowel function has returned Thank you very much for having me involved in the care of this very pleasant patient and wonderful family. If you have any questions, please feel free to contact me at [phone]. Nature of presenting problem: High severity Please note that, given the multiple number of diagnoses or management options, the moderate amount and/or complexity of data needed to be reviewed, and high risk of complications and/or morbidity or mortality, this qualifies as moderate complexity type of decision-making. Disclaimers: 1. Inadvertent spelling and grammatical errors are likely due to electronic health record (EHR)/dictation software used and do not reflect on the quality of delivered patient care. 2. The electronic timestamp recorded on this note does not necessarily reflect the actual date and time of the visit or the service. 3. Portions of this note may have been created through electronic templates and computer algorithms that might bring in information either from the system or from other physicians and providers. Please note that such information may or may not contain errors, the occurrence of which are outside of my control. In general (but not always) this happens either in the beginning or at the end of the note. The portion of the note that I have created are generally done in 1 continuous block of text, flanked at the beginning and at the end by " ", and entered into one field in the EHR. 4. There may be other unanticipated errors in the note that are outside of my control. I can only attest to the portions of the note that I have created. Updated clinical summary: A very-pleasant 27-year-old lady with comorbidity of BMI 41.4 and prior C- sections, presenting with a picture concerning for possible ruptured appendicitis. Pain remained unchanged after a few days in the hospital. Chest pain on 08/28/2017 at night led to a CT angiogram that did not demonstrate any evidence of pulmonary embolism or other major pathology. S/p an otherwise uncomplicated but difficult laparoscopic appendectomy [facility] 08/30/17 with findings of severe chronic appendicitis without evidence of acute perforation and presence of significant adhesions in the pelvis Comorbidities: 1. Chronic appendicitis, severe; not acutely perforated; s/p an otherwise uncomplicated but difficult laparoscopic appendectomy [facility] 08/30/17 with findings of severe chronic appendicitis without evidence of acute perforation and presence of significant adhesions in the pelvis 2. BMI 41.4 3. C-sections 2 4. Ectopic with removal of right ovary and spontaneous 2010 5. Ovarian cyst (3.9 cm left adnexal cyst on CT of abdomen and pelvis, [facility] ) 6. Lobulated contours to the kidneys compatible with cortical scarring (CT of abdomen and pelvis, [facility] 08/26/2017) 7. Possible cholelithiasis without bile duct dilatation or pancreatic pathology (CT of abdomen and pelvis, [facility] 08/26/2017) 8. Mildly fatty infiltrated liver and mild splenomegaly (CT of abdomen and pelvis, [facility] 08/26/2017) 9. Iron deficiency anemia 10. Albumin 2.8 (after resuscitation) Subjective: No major events or complaints overnight; still with abd pain and feels under semi-adequate control with medications (has not been taking [place] and still on IV meds); some nausea; no vomiting; no sob or cp; - bowel activity; - activity Objective: Vitals: See below Exam: GENERAL: On exam, the patient was laying in bed and appeared to be comfortable and in no acute distress. Somewhat sedated from recent IV Dilaudid. ABDOMEN: Soft, minimally tender to palpation in the right lower quadrant and nondistended. Incision dressings d/c'd and incisions c/d/i w/o any obvious e/e/ d/h. There are no peritoneal signs or guarding. SKIN: Skin appears to be pink and feels warm to touch. NEUROLOGIC: Patient is easily arousable, alert, and follows commands appropriately. Exam/Review of Systems Vital Signs Vitals Vital Signs Date Time Temp Pulse Resp B/P Pulse Ox O2 Delivery O2 Flow Rate FiO2 09/01/17 08:33 99.1 85 16 129/87 92 08/30/17 18:47 Room Air Intake and Output 08/31/17 08/31/17 09/01/17 15:00 23:00 07:00 Intake Total 940 ml 1810 ml 750 ml Output Total 300 ml 700 ml 1300 ml Balance 640 ml 1110 ml -550 ml Results Result Diagram: 09/01/17 0534 09/01/17 0534 MINESH RUSSELL M.D. Sep 01, 2017 09:46
[2017-09-01] MEDS ORDERED: OXYCODONE/ACETAMINOPHEN (5/325) TAB PO PRN (10:00)
[2017-09-01] MEDS ORDERED: BISACODYL 10 MG SUPP PR PRN ×2 (11:00→21:00)
[2017-09-01] MEDS ORDERED: VITAMIN A & D 5 GM OINT PACKET TOP ONE (11:47)
[2017-09-01] MEDS: OXYCODONE/ACETAMINOPHEN (5/325) TAB PO PRN ×3 (13:39→21:32)
[2017-09-01 14:19] VITALS: BP 110/56; RESP 16
[2017-09-01] MEDS ORDERED: POTASSIUM CHLORIDE (SR) 10 MEQ TAB PO ONE (16:30)
--- NOTE | 2017-09-01 16:42 | PN ---
Date/Time of Note Date/Time of Note DATE: 09/01/17 TIME: 16:30 Assessment/Plan VTE Prophylaxis VTE Prophylaxis Intervention: SCD's Lines/Catheters IV [facility] Saline Lock Urinary Cath still in place: No Assessment/Plan Assessment/Plan [facility] 1. 27-year-old woman s/p surgical repair for a ruptured acute appendicitis. The positive blood culture I cited yesterday for alpha-hemolytic strep was from an earlier sample (08/26/17). WBC improved today, and she has significantly less abdominal pain now. * Discussed with Dr. Cantrell, and we will stop the IV penicillin * Discontinue IV fluids * Percocet and toradol 2. Acute on chronic hypochromic microcytic anemia. Partially secondary to menometrorrhagia. Pelvic ultrasound showed no uterine fibroids. She had a bowel movement a moment ago that had blood intermixed. Hematocrit stable today at 32.9%. * Patient will have to follow-up with her [employer] doctor. 3. Mild ileus, now with her first bowel movement this afternoon on Colace and following a suppository. 4. Episode of chest pressure and mild sinus tachycardia three days ago. CT angiogram of chest was negative for PE or any acute findings. No continued chest symptoms. 5. Vaginal yeast infection, likely secondary to antibiotic use. * Will start her on Monistat-7 suppository tonight 6. Prophylaxis: Pepcid for GI prophylaxis, SCDs for DVT prophylaxis 7. Disposition: Home once she is passing flatus/stool, with pain well- controlled. Dr. Cantrell recommended discharge tomorrow (Saturday). Renee Ybarra MD PhD [phone] Subjective 24 Hr Interval Summary Free Text/Dictation Feeling much better overall, with less pain and tolerating Percocet well ( replaced Dilaudid). Still no flatus or bowel movement, despite suppository two hours ago. Complaining of swelling and pain left upper arm near previous IV site. No dyspnea. Up out of bed to the bathroom and steady on her feet. Exam/Review of Systems Vital Signs Vitals Vital Signs Date Time Temp Pulse Resp B/P Pulse Ox O2 Delivery O2 Flow Rate FiO2 09/01/17 14:19 99.5 83 16 110/56 93 08/30/17 18:47 Room Air Intake and Output 08/31/17 08/31/17 09/01/17 15:00 23:00 07:00 Intake Total 940 ml 1810 ml 750 ml Output Total 300 ml 700 ml 1300 ml Balance 640 ml 1110 ml -550 ml Exam Constitutional: Serious, but not uncomfortable-appearing. HEENT: Normal pupils, no conjunctivitis or icterus. Respiratory: Clear to auscultation, good air movement bilaterally. Cardiovascular: Symmetric pulses, regular rhythm, normal rate, good peripheral perfusion Gastrointestinal: soft, mild apprehension but no estefany tenderness, rebound or guarding Musculoskeletal: nl extremities to inspection. No calf tenderness or nodularity. She had mild warmth, erythema, and tenderness in a vertical band overlying the biceps muscle. Neurological: [employer]ER II-XII intact, nl mental status, nl speech, nl strength. Intact memory and executive function. Results Result Diagram: 09/01/17 0534 09/01/17 0534 Results 24 hrs Laboratory Tests Test 09/01/17 05:34 White Blood Count 12.5 H Red Blood Count 4.88 Hemoglobin 9.7 L Hematocrit 32.9 L Mean Corpuscular Volume 67.4 L Mean Corpuscular Hemoglobin 19.9 L Mean Corpuscular Hemoglobin Concent 29.5 L Red Cell Distribution Width 28.2 H Platelet Count 359 Mean Platelet Volume Neutrophils % 71.8 Lymphocytes % 18.8 Monocytes % 6.9 Eosinophils % 1.0 Basophils % 0.4 Nucleated Red Blood Cells % 0.0 Neutrophils # 9.0 H Lymphocytes # 2.4 Monocytes # 0.9 Eosinophils # 0.1 Basophils # 0.1 Nucleated Red Blood Cells # 0.0 Prothrombin Time 13.6 Prothrombin Time Ratio 1.1 INR International Normalized Ratio 1.04 Activated Partial Thromboplast Time 32.4 Sodium Level 140 Potassium Level 3.2 L Chloride Level 102 Carbon Dioxide Level 29 Anion Gap 12 Blood Urea Nitrogen 8 Creatinine 0.83 Glucose Level 88 Calcium Level 8.7 Phosphorus Level 4.8 Magnesium Level 1.5 L Total Bilirubin 0.2 Direct Bilirubin 0.00 Indirect Bilirubin 0.2 Aspartate Amino Transf (AST/SGOT) 26 Alanine Aminotransferase (ALT/SGPT) 28 Alkaline Phosphatase 80 B-Type Natriuretic Peptide 242 H Total Protein 7.2 Albumin 3.2 L Globulin 4.00 H Albumin/Globulin Ratio 0.80 Medications Medications Current Medications Acetaminophen (Tylenol Tab) 650 mg Q4H PRN PO PAIN AND OR ELEVATED TEMP Last administered on 08/27/17 08:30; Admin Dose 650 MG; Start 08/26/17 at 21:30 Ondansetron HCl (Zofran Inj) 4 mg Q4H PRN IV NAUSEA AND/OR VOMITING Last administered on 08/27/17 11:17; Admin Dose 4 MG; Start 08/26/17 at 21:30 Hydromorphone HCl (Dilaudid) 0.5 mg Q2 PRN IV PAIN Last administered on 17:52; Admin Dose 0.5 MG; Start 08/30/17 at 18:00 Hydromorphone HCl (Dilaudid) 1 mg Q2 PRN IV PAIN Last administered on 09:21; Admin Dose 1 MG; Start 08/30/17 at 18:00 Sodium Biphosphate/ Sodium Phosphate (Fleet Enema) 133 ml Q12H NC ; Start 09/02 at 00:00 Enoxaparin Sodium (Lovenox) 40 mg DAILY SC Last administered on 09/01/17 09: 11; Admin Dose 40 MG; Start 08/31/17 at 09:00 Docusate Sodium (Colace) 100 mg BID PRN PO CONSTIPATION; Start 09/01/17 at 21: 00 Sodium Biphosphate/ Sodium Phosphate (Fleet Enema) 133 ml Q12H PRN [place] CONSTIPATION; Start 09/02/17 at 18:00 Famotidine (Pepcid) 40 mg HS PO Last administered on 08/31/17 20:35; Admin Dose 40 MG; Start 08/31/17 at 21:00 Lactobacillus Acidophilus (Florajen3 Capsule) 1 each BID PO Last administered on 09/01/17 09:10; Admin Dose 1 EACH; Start 08/31/17 at 21:00 Diphenhydramine HCl (Benadryl) 25 mg Q6H PRN PO ITCHING; Start 09/01/17 at 10: 00 Oxycodone/ Acetaminophen (Percocet (5/ 325)) 1 tab Q4H PRN PO PAIN; Start at 10:00 Oxycodone/ Acetaminophen (Percocet (5/ 325)) 2 tab Q4H PRN PO PAIN Last administered on 09/01/17 13:39; Admin Dose 2 TAB; Start 09/01/17 at 10:00 Bisacodyl (Dulcolax Supp) 10 mg Q12H PRN [place] CONSTIPATION Last administered on 09/01/17 13:33; Admin Dose 10 MG; Start 09/01/17 at 11:00 NOLBERTO YBARRA M.D. Sep 01, 2017 16:41
[2017-09-01] MEDS ORDERED: BISACODYL 10 MG SUPP PR SCH (18:00)
[2017-09-01 20:00] VITALS: BP 108/61; RESP 20
[2017-09-01] MEDS ORDERED: DOCUSATE SODIUM 100 MG CAP PO PRN (21:00)
[2017-09-01] MEDS ORDERED: MICONAZOLE 100 MG VAG SUPP VAG SCH (21:00)
[2017-09-01] MEDS ORDERED: DOCUSATE SODIUM 100 MG CAP PO SCH (21:00)
[2017-09-01] MEDS: FAMOTIDINE 20 MG TAB PO SCH (21:04)
[2017-09-01] MEDS: DIPHENHYDRAMINE 25 MG CAP PO PRN (23:00)
[2017-09-02 02:00] VITALS: BP 123/79; RESP 20
[2017-09-02] MEDS: OXYCODONE/ACETAMINOPHEN (5/325) TAB PO PRN ×5 (02:19→20:36)
[2017-09-02 05:59] LABS: ABNORMAL IP MESSAGE 1; BASOPHIL # 0.1 10^3/ul (0.0-0.1); BASOPHILS % 0.8 % (0.0-2.0); EOSINOPHILS # 0.2 10^3/ul (0.0-0.5); HEMATOCRIT 32.8 % (37.0-47.0); HEMOGLOBIN 9.6 g/dl (12.0-16.0); LYMPHOCYTES # 2.3 10^3/ul (0.8-2.9); LYMPHOCYTES % 26.4 % (15.0-51.0); MEAN CORPUSCULAR HEMOGLOBIN 19.8 pg (29.0-33.0); MEAN CORPUSCULAR HGB CONC 29.3 g/dl (32.0-37.0); MEAN CORPUSCULAR VOLUME 67.6 fl (82.0-101.0); MONOCYTE # 0.8 10^3/ul (0.3-0.9); MONOCYTES % 8.7 % (0.0-11.0); NEUTROPHIL # 5.3 10^3/ul (1.6-7.5); NEUTROPHILS % 61.2 % (39.0-77.0); PLATELET COUNT 325 10^3/UL (140-415); RED BLOOD COUNT 4.85 10^6/ul (4.20-5.40); RED CELL DISTRIBUTION WIDTH 28.6 % (11.5-14.5); WHITE BLOOD COUNT 8.6 10^3/ul (4.8-10.8)
[2017-09-02 06:11] LABS: POSITIVE DIFF @See below
[2017-09-02 06:15] LABS: INR 1.11; PROTIME 14.3 Sec (12.2-14.2); PT RATIO 1.1
[2017-09-02 07:10] LABS: ALBUMIN 3.2 g/dl (3.3-4.9); ALBUMIN/GLOBULIN RATIO 0.78; BILIRUBIN,INDIRECT 0.3 mg/dl (0-1.1); BILIRUBIN,TOTAL 0.3 mg/dl (0.2-1.3); CALCIUM 8.9 mg/dl (8.4-10.2); CREATININE 0.83 mg/dl (0.44-1.00); MAGNESIUM 1.7 mg/dl (1.7-2.5); PHOSPHORUS 4.9 mg/dl (2.5-4.9); POTASSIUM 3.5 mmol/L (3.5-5.1); TOTAL PROTEIN 7.3 g/dl (6.1-8.1)
[2017-09-02 07:32] VITALS: BP 110/64; PULSE 75; RESP 20
[2017-09-02] MEDS: ENOXAPARIN 40 MG/0.4 ML SYG SC SCH (09:48)
[2017-09-02] MEDS: DIPHENHYDRAMINE 25 MG CAP PO PRN ×3 (09:49→21:36)
[2017-09-02] MEDS: NA PHOSPHATE/BIPHOS 133 ML ENEMA PR SCH ×2 (12:00)
--- NOTE | 2017-09-02 13:02 | PN ---
Date/Time of Note Date/Time of Note DATE: 09/02/17 TIME: 12:51 Assessment/Plan VTE Prophylaxis VTE Prophylaxis Intervention: SCD's Lines/Catheters IV Catheter Type (from [facility]): Saline Lock Urinary Cath still in place: No Assessment/Plan Assessment/Plan 27-year-old female with 1. Chronic appendicitis as postoperative diagnosis, no rupture, Off IV antibiotics currently, white blood cell count within normal this morning with a stable hemoglobin Patient off IV narcotics as of yesterday, has been on the Percocet, claims that pain is worse today. Follow-up general surgery recommendations, Dr. Cantrell Continue pain control with oral medications only. 2. Positive blood culture, 1/2 with coag negative Staphylococcus, most likely contaminant, repeat blood cultures are negative so far, off antibiotics 3. Acute on chronic microcytic anemia, iron deficient, secondary to menometrorrhagia, pelvic ultrasound showing no ureteral fibroids. No acute bleeding noted currently. Hemoglobin stable at 9.6 Patient will have to follow-up with her COMMUNITY OUTREACH SPECIALIST doctor. Patient reporting again rectal bleeding, likely from hemorrhoids at this point. Status post Ferrlicit/IV iron. Repeat H&H pending 4. Morbid obesity. Prophylaxis: Pepcid for GI prophylaxis, SCDs for DVT prophylaxis Disposition: Discharge planning when okay with general surgery again likely to need an outpatient GI referral along with COMMUNITY OUTREACH SPECIALIST. Subjective 24 Hr Interval Summary Free Text/Dictation Patient this morning is reporting severe abdominal pain, worse than yesterday, she had episodes of rectal bleeding apparently, she is not sure if she has history of hemorrhoids are not. She is also reporting some dizziness. Hemoglobin was stable this morning along with a normalized WBC. Awaiting surgical evaluation. Patient has been taken off IV narcotics also yesterday and switch to oral narcotics. Repeat H&H pending, disposition will depend on neurosurgical recommendations and repeat H&H. Likely will need GI evaluation as outpatient hopefully. Exam/Review of Systems Vital Signs Vitals Vital Signs Date Time Temp Pulse Resp B/P Pulse Ox O2 Delivery O2 Flow Rate FiO2 09/02/17 07:32 98.5 75 20 110/64 96 Room Air Intake and Output 09/01/17 09/01/17 09/02/17 15:00 23:00 07:00 Intake Total 1140 ml 240 ml Output Total 900 ml Balance 240 ml 240 ml Exam Constitutional: alert, obese (Morbid), oriented, well developed Respiratory: clear to auscultation, normal air movement Cardiovascular: nl pulses, regular rate and rhythm Gastrointestinal: soft, tender (On the right side, perioperative sites. No erythema seen, laparoscopic incisions are healing very well.) Musculoskeletal: nl extremities to inspection Extremities: normal pulses, other (No edema, clubbing or cyanosis) Neurological: TELEVISION AND RADIO REPAIRER II-XII intact, nl mental status, nl speech, nl strength, other (She feels weak) Results Result Diagram: 09/02/1752409/02/1725 Results 24 hrs Laboratory Tests Test 09/02/17 05:25 White Blood Count 8.6 # Red Blood Count 4.85 Hemoglobin 9.6 L Hematocrit 32.8 L Mean Corpuscular Volume 67.6 L Mean Corpuscular Hemoglobin 19.8 L Mean Corpuscular Hemoglobin Concent 29.3 L Red Cell Distribution Width 28.6 H Platelet Count 325 Mean Platelet Volume Neutrophils % 61.2 Lymphocytes % 26.4 Monocytes % 8.7 Eosinophils % 2.0 Basophils % 0.8 Nucleated Red Blood Cells % 0.0 Neutrophils # 5.3 Lymphocytes # 2.3 Monocytes # 0.8 Eosinophils # 0.2 Basophils # 0.1 Nucleated Red Blood Cells # 0.0 Prothrombin Time 14.3 H Prothrombin Time Ratio 1.1 INR International Normalized Ratio 1.11 Activated Partial Thromboplast Time 37.0 H Sodium Level 142 Potassium Level 3.5 Chloride Level 103 Carbon Dioxide Level 31 Anion Gap 12 Blood Urea Nitrogen 10 Creatinine 0.83 Glucose Level 88 Lactic Acid Level 1.1 Calcium Level 8.9 Phosphorus Level 4.9 Magnesium Level 1.7 Total Bilirubin 0.3 Direct Bilirubin 0.00 Indirect Bilirubin 0.3 Aspartate Amino Transf (AST/SGOT) 48 H Alanine Aminotransferase (ALT/SGPT) 30 Alkaline Phosphatase 99 B-Type Natriuretic Peptide 61 Total Protein 7.3 Albumin 3.2 L Globulin 4.10 H Albumin/Globulin Ratio 0.78 Medications Medications Current Medications Acetaminophen (Tylenol Tab) 650 mg Q4H PRN PO PAIN AND OR ELEVATED TEMP Last administered on 08/27/17 08:30; Admin Dose 650 MG; Start 08/26/17 at 21:30 Ondansetron HCl (Zofran Inj) 4 mg Q4H PRN IV NAUSEA AND/OR VOMITING Last administered on 08/27/17 11:17; Admin Dose 4 MG; Start 08/26/17 at 21:30 Hydromorphone HCl (Dilaudid) 0.5 mg Q2 PRN IV PAIN Last administered on 17:52; Admin Dose 0.5 MG; Start 08/30/17 at 18:00 Hydromorphone HCl (Dilaudid) 1 mg Q2 PRN IV PAIN Last administered on 09:21; Admin Dose 1 MG; Start 08/30/17 at 18:00 Sodium Biphosphate/ Sodium Phosphate (Fleet Enema) 133 ml Q12H NM ; Start 09/02 at 00:00 Enoxaparin Sodium (Lovenox) 40 mg DAILY SC Last administered on 09/02/17 09: 48; Admin Dose 40 MG; Start 08/31/17 at 09:00 Docusate Sodium (Colace) 100 mg BID PRN PO CONSTIPATION; Start 09/01/17 at 21: 00 Sodium Biphosphate/ Sodium Phosphate (Fleet Enema) 133 ml Q12H PRN [place] CONSTIPATION; Start 09/02/17 at 18:00 Famotidine (Pepcid) 40 mg HS PO Last administered on 09/01/17 21:04; Admin Dose 40 MG; Start 08/31/17 at 21:00 Diphenhydramine HCl (Benadryl) 25 mg Q6H PRN PO ITCHING Last administered on 09:49; Admin Dose 25 MG; Start 09/01/17 at 10:00 Oxycodone/ Acetaminophen (Percocet (5/ 325)) 1 tab Q4H PRN PO PAIN; Start at 10:00 Oxycodone/ Acetaminophen (Percocet (5/ 325)) 2 tab Q4H PRN PO PAIN Last administered on 09/02/17 12:48; Admin Dose 2 TAB; Start 09/01/17 at 10:00 Bisacodyl (Dulcolax Supp) 10 mg Q12H PRN [place] CONSTIPATION Last administered on 09/01/17 13:33; Admin Dose 10 MG; Start 09/01/17 at 11:00 Miconazole (Monistat-7) 1 supp HS VAG Last administered on 09/01/17 21:04; Admin Dose 1 SUPP; Start 09/01/17 at 21:00; Stop 09/07/17 at 21:01 PJ PAULINO Sep 02, 2017 13:02
[2017-09-02 14:23] VITALS: BP 96/58; RESP 18
[2017-09-02] MEDS ORDERED: POTASSIUM CHLORIDE 20 MEQ POWDER FOR ORAL SOLN PO ONE (14:30)
[2017-09-02 15:15] LABS: HEMATOCRIT 33.6 % (37.0-47.0); HEMOGLOBIN 9.8 g/dl (12.0-16.0)
--- NOTE | 2017-09-02 15:45 | PN ---
Date/Time of Note Date/Time of Note DATE: 09/02/17 TIME: 15:42 Assessment/Plan Lines/Catheters IV Catheter Type (from Nrs): Saline Lock Ramon in Place (from Nrs): No Assessment/Plan Assessment/Plan [facility] Progress Note Date of Service: 09/02/2017 Location of Service: [address] Today's Assessment & Plan: Overall stable, but showing signs of ileus versus partial small bowel obstruction as well as new onset bleeding that could be from either vaginal or rectal sources or both. Source is still unclear. Abdominal pain continues. Patient requires further workup and needs to stay in the hospital. Explained to patient and family and answered all questions. Patient and family appeared to understand and agreed with plans. Previous assessments that applies today: A very-pleasant 27-year-old lady with comorbidity of BMI 41.4 and prior C- sections, presenting with a picture concerning for possible ruptured appendicitis. No drainable abscess noted on CT scan per my discussions with Dr. Del Cid from interventional radiology. With above assessment, I've recommended the followin. KUB series 2. Keep in-house 3. Cont regular diet,, but scaled back to clear liquids or n.p.o. if the patient becomes more nauseous or starts vomiting 4. Labs in a.m. 5. Increase activity 6. Increase ICS 7. Continue Percocet 8. Possible need for gastroenterology and ASSEMBLER [employer]ER [employer]S consultations if the bleeding continues 9. Monitor hemoglobin Thank you very much for having me involved in the care of this very pleasant patient and wonderful family. If you have any questions, please feel free to contact me at [phone]. Nature of presenting problem: High severity Please note that, given the multiple number of diagnoses or management options, the moderate amount and/or complexity of data needed to be reviewed, and high risk of complications and/or morbidity or mortality, this qualifies as moderate complexity type of decision-making. Disclaimers: 1. Inadvertent spelling and grammatical errors are likely due to electronic health record (EHR)/dictation software used and do not reflect on the quality of delivered patient care. 2. The electronic timestamp recorded on this note does not necessarily reflect the actual date and time of the visit or the service. 3. Portions of this note may have been created through electronic templates and computer algorithms that might bring in information either from the system or from other physicians and providers. Please note that such information may or may not contain errors, the occurrence of which are outside of my control. In general (but not always) this happens either in the beginning or at the end of the note. The portion of the note that I have created are generally done in 1 continuous block of text, flanked at the beginning and at the end by " ", and entered into one field in the EHR. 4. There may be other unanticipated errors in the note that are outside of my control. I can only attest to the portions of the note that I have created. Updated clinical summary: A very-pleasant 27-year-old lady with comorbidity of BMI 41.4 and prior C- sections, presenting with a picture concerning for possible ruptured appendicitis. Pain remained unchanged after a few days in the hospital. Chest pain on 08/28/2017 at night led to a CT angiogram that did not demonstrate any evidence of pulmonary embolism or other major pathology. S/p an otherwise uncomplicated but difficult laparoscopic appendectomy [facility] 08/30/17 with findings of severe chronic appendicitis without evidence of acute perforation and presence of significant adhesions in the pelvis Comorbidities: 1. Chronic appendicitis, severe; not acutely perforated; s/p an otherwise uncomplicated but difficult laparoscopic appendectomy [facility] 08/30/17 with findings of severe chronic appendicitis without evidence of acute perforation and presence of significant adhesions in the pelvis 2. BMI 41.4 3. C-sections 2 4. Ectopic with removal of right ovary and spontaneous 2010 5. Ovarian cyst (3.9 cm left adnexal cyst on CT of abdomen and pelvis, [facility] ) 6. Lobulated contours to the kidneys compatible with cortical scarring (CT of abdomen and pelvis, [facility] 08/26/2017) 7. Possible cholelithiasis without bile duct dilatation or pancreatic pathology (CT of abdomen and pelvis, [facility] 08/26/2017) 8. Mildly fatty infiltrated liver and mild splenomegaly (CT of abdomen and pelvis, [facility] 08/26/2017) 9. Iron deficiency anemia 10. Albumin 2.8 (after resuscitation) Subjective: No major events or complaints overnight; still with abd pain; some nausea; no vomiting; no sob or cp; + bowel activity with blood in it; minimal activity Objective: Vitals: See below Exam: GENERAL: On exam, the patient was standing up in her room and appeared to be semi-comfortable and in no acute distress. Some hiccups, and associated pain with hiccups. ABDOMEN: Soft, minimally tender to palpation in the right lower quadrant and nondistended. Incisions c/d/i w/o any obvious e/e/d/h. There are no peritoneal signs or guarding. SKIN: Skin appears to be pink and feels warm to touch. NEUROLOGIC: Patient is awake, alert, and follows commands appropriately. Exam/Review of Systems Vital Signs Vitals Vital Signs Date Time Temp Pulse Resp B/P Pulse Ox O2 Delivery O2 Flow Rate FiO2 09/02/17 14:23 98.3 73 18 96/58 94 09/02/17 07:32 Room Air Intake and Output 09/01/17 09/01/17 09/02/17 14:59 22:59 06:59 Intake Total 1140 ml 240 ml Output Total 900 ml Balance 240 ml 240 ml Results Result Diagram: 09/02/17 1437 09/02/17 0525 MINESH RUSSELL M.D. Sep 02, 2017 15:45
--- NOTE | 2017-09-02 16:39 | RADRPT ---
PROCEDURE: XR Abdomen. CLINICAL INDICATION: Abdominal pain following surgery TECHNIQUE: AP abdomen x-rays, supine and erect, a total of 4 images sent to the PACS for review. COMPARISON: CT abdomen and pelvis 08/26/2017 FINDINGS: Some gas is seen throughout the colon to the level of the rectum equivocal for a mild ileus pattern There is no evidence of obstruction. No pneumoperitoneum is seen on the erect images. No visceromeg johann, soft tissue mass or pathologic calcification is demonstrated. The osseous structures are unremarkable. RPTAT:HJJR IMPRESSION: No evidence of bowel obstruction, equivocal mild ileus pattern, gas is visualized to the level of th e rectum. Physician Valentine Date Time Electronically viewed and signed by Physician Valentine on 09/02/2017 16:39 /
[2017-09-02] MEDS ORDERED: NA PHOSPHATE/BIPHOS 133 ML ENEMA PR PRN (18:00)
[2017-09-02 20:07] VITALS: BP 125/72; RESP 18
[2017-09-02] MEDS: FAMOTIDINE 20 MG TAB PO SCH (20:24)
[2017-09-02] MEDS ORDERED: MICONAZOLE 100 MG VAG SUPP VAG SCH (21:00)
[2017-09-03] MEDS: OXYCODONE/ACETAMINOPHEN (5/325) TAB PO PRN ×2 (01:02→10:19)
[2017-09-03 06:00] LABS: ABNORMAL IP MESSAGE 1; BASOPHILS % 0.5 % (0.0-2.0); EOSINOPHILS # 0.2 10^3/ul (0.0-0.5); EOSINOPHILS % 1.8 % (0.0-7.0); HEMATOCRIT 33.1 % (37.0-47.0); HEMOGLOBIN 9.7 g/dl (12.0-16.0); LYMPHOCYTES % 22.2 % (15.0-51.0); MEAN CORPUSCULAR HEMOGLOBIN 19.9 pg (29.0-33.0); MEAN CORPUSCULAR HGB CONC 29.3 g/dl (32.0-37.0); MONOCYTE # 0.6 10^3/ul (0.3-0.9); MONOCYTES % 7.1 % (0.0-11.0); NEUTROPHILS % 68.1 % (39.0-77.0); PLATELET COUNT 344 10^3/UL (140-415); RED BLOOD COUNT 4.87 10^6/ul (4.20-5.40); RED CELL DISTRIBUTION WIDTH 28.3 % (11.5-14.5); WHITE BLOOD COUNT 8.8 10^3/ul (4.8-10.8)
[2017-09-03 06:42] LABS: MAGNESIUM 1.8 mg/dl (1.7-2.5); PHOSPHORUS 4.4 mg/dl (2.5-4.9)
[2017-09-03 06:47] LABS: INR 1.07; PROTIME 13.9 Sec (12.2-14.2); PT RATIO 1.1
[2017-09-03 06:48] LABS: PARTIAL THROMBOPLASTIN TIME 38.3 Sec (25.0-35.0)
[2017-09-03 06:50] LABS: POSITIVE DIFF @See below
[2017-09-03] MEDS: ENOXAPARIN 40 MG/0.4 ML SYG SC SCH (09:23)
[2017-09-03] MEDS: DIPHENHYDRAMINE 25 MG CAP PO PRN (10:20)
[2017-09-03] MEDS: NA PHOSPHATE/BIPHOS 133 ML ENEMA PR SCH ×2 (11:12)
--- NOTE | 2017-09-03 12:36 | PN ---
Date/Time of Note Date/Time of Note DATE: 09/03/17 TIME: 12:16 Assessment/Plan VTE Prophylaxis VTE Prophylaxis Intervention: SCD's Lines/Catheters [facility] (from [facility] Saline Lock Urinary Cath still in place: No Assessment/Plan Assessment/Plan 27-year-old female with 1. Chronic appendicitis as postoperative diagnosis, no rupture, final pathology pending Off IV antibiotics for the past 2-3 days at least, WBC within normal, hemoglobin stable. Pain controlled with Percocet. Passing gas. Appreciate general surgery recommendations, discussed with Dr. Cantrell, agreeable with discharge planning including outpatient GI follow-up in 2-3 weeks if needed Discharge home, follow-up with Dr. Cantrell in 1 week, to follow-up with PCP within 1 week 2. Acute on chronic microcytic anemia, iron deficient, secondary to menometrorrhagia, pelvic ultrasound showing no ureteral fibroids. No acute bleeding noted currently. Hemoglobin stable at 9.7 Patient will have to follow-up with her PIPE COVERER HELPER doctor. Refer to gastroenterology within 2-3 weeks, patient may need outpatient colonoscopy for intermittent rectal bleeding. 3. Vaginal candidiasis (yeast infection), likely related to to broad-spectrum antibiotics used for treatment of her appendicitis: Patient did receive Monistat , she will get 1 dose of Diflucan 150 mg p.o. 1 today, she is to follow-up with her primary care physician within 1 week and PIPE COVERER HELPER within 1 week for reevaluation, if need be she can have another dose of Diflucan 150 mg p.o. 1, prescription can be provided by her primary care physician. Prophylaxis: Pepcid for GI prophylaxis, SCDs for DVT prophylaxis Disposition: Discharge home today with outpatient follow-up with general surgery , referral to PIPE COVERER HELPER and GI. Subjective 24 Hr Interval Summary Free Text/Dictation Patient doing well today, no complaints per se, pain controlled with Percocet, tolerating p.o., definitely wants to go home. KUB yesterday within normal. Minimal rectal bleeding which seems to be resolved by now, hemoglobin is stable. She will be discharged home today, discussed with Dr. Cantrell who is agreeable with the plan. Patient will be referred for outpatient GI and safe to have colonoscopy if needed in 2-3 week. Exam/Review of Systems Vital Signs Vitals Vital Signs Date Time Temp Pulse Resp B/P Pulse Ox O2 Delivery O2 Flow Rate FiO2 11/20/17 20:07 98.9 76 18 125/72 94 09/02/17 07:32 Room Air Intake and Output 09/02/17 09/02/17 09/03/17 14:59 22:59 06:59 Intake Total 1120 ml 340 ml Output Total 600 ml Balance 1120 ml -260 ml Exam Constitutional: alert, obese, oriented, well developed Respiratory: clear to auscultation, normal air movement Cardiovascular: nl pulses, regular rate and rhythm Gastrointestinal: soft, tender (Minimal, around post incisions, controlled with Percocet) Musculoskeletal: nl extremities to inspection, nl gait and stance Extremities: normal pulses Neurological: FIRST OFFICER II-XII intact, nl mental status, nl speech, nl strength Results Result Diagram: 09/03/17 0532 09/02/17 0525 Results 24 hrs Laboratory Tests Test 09/02/17 14:37 09/03/17 05:32 Hemoglobin 9.8 L 9.7 L Hematocrit 33.6 L 33.1 L White Blood Count 8.8 Red Blood Count 4.87 Mean Corpuscular Volume 68.0 L Mean Corpuscular Hemoglobin 19.9 L Mean Corpuscular Hemoglobin Concent 29.3 L Red Cell Distribution Width 28.3 H Platelet Count 344 Mean Platelet Volume Neutrophils % 68.1 Lymphocytes % 22.2 Monocytes % 7.1 Eosinophils % 1.8 Basophils % 0.5 Nucleated Red Blood Cells % 0.0 Neutrophils # 6.0 Lymphocytes # 2.0 Monocytes # 0.6 Eosinophils # 0.2 Basophils # 0.0 Nucleated Red Blood Cells # 0.0 Prothrombin Time 13.9 Prothrombin Time Ratio 1.1 INR International Normalized Ratio 1.07 Activated Partial Thromboplast Time 38.3 H Lactic Acid Level 1.2 Calcium Level 9.0 Phosphorus Level 4.4 Magnesium Level 1.8 B-Type Natriuretic Peptide 43 Imaging Free Text/Dictation PROCEDURE: XR Abdomen. CLINICAL INDICATION: Abdominal pain following surgery TECHNIQUE: AP abdomen x-rays, supine and erect, a total of 4 images sent to the PACS for review. COMPARISON: CT abdomen and pelvis 08/26/2017 FINDINGS: Some gas is seen throughout the colon to the level of the rectum equivocal for a mild ileus pattern There is no evidence of obstruction. No pneumoperitoneum is seen on the erect images. No visceromegaly, soft tissue mass or pathologic calcification is demonstrated. The osseous structures are unremarkable. RPTAT:HJJR IMPRESSION: No evidence of bowel obstruction, equivocal mild ileus pattern, gas is visualized to the level of the rectum. Dickson Thomason Physician Date Time Electronically viewed and signed by Dickson Thomason Physician on 09/02/2017 16:39 Medications Medications Current Medications Acetaminophen (Tylenol Tab) 650 mg Q4H PRN PO PAIN AND OR ELEVATED TEMP Last administered on 08/27/17 08:30; Admin Dose 650 MG; Start 08/26/17 at 21:30 Ondansetron HCl (Zofran Inj) 4 mg Q4H PRN IV NAUSEA AND/OR VOMITING Last administered on 08/27/17 11:17; Admin Dose 4 MG; Start 08/26/17 at 21:30 Hydromorphone HCl (Dilaudid) 0.5 mg Q2 PRN IV PAIN Last administered on 17:52; Admin Dose 0.5 MG; Start 08/30/17 at 18:00 Hydromorphone HCl (Dilaudid) 1 mg Q2 PRN IV PAIN Last administered on 09:21; Admin Dose 1 MG; Start 08/30/17 at 18:00 Sodium Biphosphate/ Sodium Phosphate (Fleet Enema) 133 ml Q12H [place] ; Start 09/02 at 00:00 Enoxaparin Sodium (Lovenox) 40 mg DAILY SC Last administered on 09/03/17 09: 23; Admin Dose 40 MG; Start 08/31/17 at 09:00 Docusate Sodium (Colace) 100 mg BID PRN PO CONSTIPATION; Start 09/01/17 at 21: 00 Sodium Biphosphate/ Sodium Phosphate (Fleet Enema) 133 ml Q12H PRN [place] CONSTIPATION; Start 09/02/17 at 18:00 Famotidine (Pepcid) 40 mg HS PO Last administered on 09/02/17 20:24; Admin Dose 40 MG; Start 08/31/17 at 21:00 Diphenhydramine HCl (Benadryl) 25 mg Q6H PRN PO ITCHING Last administered on 10:20; Admin Dose 25 MG; Start 09/01/17 at 10:00 Oxycodone/ Acetaminophen (Percocet (5/ 325)) 1 tab Q4H PRN PO PAIN; Start at 10:00 Oxycodone/ Acetaminophen (Percocet (5/ 325)) 2 tab Q4H PRN PO PAIN Last administered on 09/03/17 10:19; Admin Dose 2 TAB; Start 09/01/17 at 10:00 Bisacodyl (Dulcolax Supp) 10 mg Q12H PRN [place] CONSTIPATION Last administered on 09/01/17 13:33; Admin Dose 10 MG; Start 09/01/17 at 11:00 Miconazole (Monistat-7) 1 supp HS VAG Last administered on 09/02/17 22:10; Admin Dose 1 SUPP; Start 09/02/17 at 21:00; Stop 09/07/17 at 21:01 Procedures Procedures PROCEDURE: XR Abdomen. CLINICAL INDICATION: Abdominal pain following surgery TECHNIQUE: AP abdomen x-rays, supine and erect, a total of 4 images sent to the PACS for review. COMPARISON: CT abdomen and pelvis 08/26/2017 FINDINGS: Some gas is seen throughout the colon to the level of the rectum equivocal for a mild ileus pattern There is no evidence of obstruction. No pneumoperitoneum is seen on the erect images. No visceromegaly, soft tissue mass or pathologic calcification is demonstrated. The osseous structures are unremarkable. RPTAT:HJJR IMPRESSION: No evidence of bowel obstruction, equivocal mild ileus pattern, gas is visualized to the level of the rectum. Physician Valentine Date Time Electronically viewed and signed by Physician Valentine on 09/02/2017 16:39 PJ PAULINO Sep 03, 2017 12:36
--- NOTE | 2017-09-03 12:49 | PDOCDIS ---
Discharge Instructions CONDITION Patient Condition: Stable HOME CARE INSTRUCTIONS: Special Diet: regular ACTIVITY: Activity Restrictions: Slowly Increase Activity FOLLOW UP/APPOINTMENTS Follow-up Plan Follow-up with primary care physician within 1 week Referral to PATHOLOGY ASSISTANT regarding menometrorrhagia and a chronic microcytic anemia within 1-2 weeks Referral to gastroenterology within 2-3 weeks as needed for intermittent rectal bleeding, patient may need a colonoscopy and per general surgery she would be okay to have one at the earliest 2 weeks from discharge. SCHOOL/WORK RELEASE May return to School/Work on: Sep 09, 2017 PJ PAULINO Sep 03, 2017 12:49
[2017-09-03] MEDS ORDERED: BEN25 PO (12:55)
[2017-09-03] MEDS ORDERED: OXYC-438 PO (12:55)
[2017-09-03] MEDS ORDERED: DOCU-216 PO (12:55)
[2017-09-03] MEDS ORDERED: FLUCONAZOLE 150 MG TAB PO ONE (13:00)
--- NOTE | 2017-09-03 13:22 | PN ---
Date/Time of Note Date/Time of Note DATE: 09/03/17 TIME: 13:14 Assessment/Plan Lines/Catheters IV Catheter Type (from Nrs): Saline Lock Ramon in Place (from Nrs): No Assessment/Plan Assessment/Plan [facility] Progress Note Date of Service: 09/03/2017 Location of Service: [address] Today's Assessment & Plan: Overall stable and appears significantly improved. Showing signs of resolution of postoperative paralytic ileus. Hemoglobin levels have been stable and no evidence of overt active bleeding. Patient okay to discharge from my standpoint. Explained to patient and family and answered all questions. Patient and family appeared to understand and agreed with plans. Also d/w Dr. Morales. Previous assessments that applies today: A very-pleasant 27-year-old lady with comorbidity of BMI 41.4 and prior C- sections, presenting with a picture concerning for possible ruptured appendicitis. No drainable abscess noted on CT scan per my discussions with Dr. Del Cid from interventional radiology. With above assessment, I've recommended the followin. Okay to discharge home from my standpoint 2. Follow-up with gynecology regarding heavy menses 3. Follow with primary care physician and workup for anemia 4. Follow-up with us in 1-2 weeks for postoperative checks 5. Please include the following the patient's discharge instructions: "Please call [phone] if any of fever, nausea, vomiting, discharge from wound, wound redness, increase or sudden pain, blood in stool or vomit, or any other unusual signs or symptoms. Also, please call the same number in a few days to schedule an appointment for your follow up visit. Patient may remove dressings tomorrow. Showers OK starting tomorrow. No swimming , hot tub or bath for 2 weeks. No lifting more than 25 lbs for 8 weeks." Thank you very much for having me involved in the care of this very pleasant patient and wonderful family. If you have any questions, please feel free to contact me at [phone]. Nature of presenting problem: High severity Please note that, given the multiple number of diagnoses or management options, the moderate amount and/or complexity of data needed to be reviewed, and high risk of complications and/or morbidity or mortality, this qualifies as moderate complexity type of decision-making. Disclaimers: 1. Inadvertent spelling and grammatical errors are likely due to electronic health record (EHR)/dictation software used and do not reflect on the quality of delivered patient care. 2. The electronic timestamp recorded on this note does not necessarily reflect the actual date and time of the visit or the service. 3. Portions of this note may have been created through electronic templates and computer algorithms that might bring in information either from the system or from other physicians and providers. Please note that such information may or may not contain errors, the occurrence of which are outside of my control. In general (but not always) this happens either in the beginning or at the end of the note. The portion of the note that I have created are generally done in 1 continuous block of text, flanked at the beginning and at the end by " ", and entered into one field in the EHR. 4. There may be other unanticipated errors in the note that are outside of my control. I can only attest to the portions of the note that I have created. Updated clinical summary: A very-pleasant 27-year-old lady with comorbidity of BMI 41.4 and prior C- sections, presenting with a picture concerning for possible ruptured appendicitis. Pain remained unchanged after a few days in the hospital. Chest pain on 08/28/2017 at night led to a CT angiogram that did not demonstrate any evidence of pulmonary embolism or other major pathology. S/p an otherwise uncomplicated but difficult laparoscopic appendectomy [facility] 08/30/17 with findings of severe chronic appendicitis without evidence of acute perforation and presence of significant adhesions in the pelvis Comorbidities: 1. Chronic appendicitis, severe; not acutely perforated; s/p an otherwise uncomplicated but difficult laparoscopic appendectomy [facility] 08/30/17 with findings of severe chronic appendicitis without evidence of acute perforation and presence of significant adhesions in the pelvis 2. BMI 41.4 3. C-sections 2 4. Ectopic with removal of right ovary and spontaneous 2010 5. Ovarian cyst (3.9 cm left adnexal cyst on CT of abdomen and pelvis, [facility] ) 6. Lobulated contours to the kidneys compatible with cortical scarring (CT of abdomen and pelvis, [facility] 08/26/2017) 7. Possible cholelithiasis without bile duct dilatation or pancreatic pathology (CT of abdomen and pelvis, [facility] 08/26/2017) 8. Mildly fatty infiltrated liver and mild splenomegaly (CT of abdomen and pelvis, [facility] 08/26/2017) 9. Iron deficiency anemia 10. Albumin 2.8 (after resuscitation) Subjective: No major events or complaints overnight; much less abdominal pain; no nausea and no vomiting; no sob or cp; + bowel activity with very minimal blood in it; + activity Objective: Vitals: See below Exam: GENERAL: On exam, the patient was laying in bed and appeared to be comfortable and in no acute distress. ABDOMEN: Soft, minimally tender to palpation in the right lower quadrant and nondistended. Incisions c/d/i w/o any obvious e/e/d/h. There are no peritoneal signs or guarding. SKIN: Skin appears to be pink and feels warm to touch. NEUROLOGIC: Patient is awake, alert, and follows commands appropriately. Exam/Review of Systems Vital Signs Vitals Vital Signs Date Time Temp Pulse Resp B/P Pulse Ox O2 Delivery O2 Flow Rate FiO2 09/02/17 20:07 98.9 76 18 125/72 94 09/02/17 07:32 Room Air Intake and Output 09/02/17 09/02/17 09/03/17 15:00 23:00 07:00 Intake Total 1120 ml 340 ml Output Total 600 ml Balance 1120 ml -260 ml Results Result Diagram: 09/03/17 0532 09/02/17 0525 MINESH RUSSELL M.D. Sep 03, 2017 13:22
== END 2017-09-03 15:00 | disposition home or self-care (01) | DRG 336 ==
LOC: FTE 13:49 → PP2 17:54 → MS2 08-30 19:00
PROVIDERS: ADMIT Legal Medicine; ATTEND Legal Medicine
PROC: 30233N1 Transfusion of Nonautologous Red Blood Cells into Peripheral Vein, Percutaneous Approach (ICD-10-PCS; 2017-08-26)
PROC: 0DNU4ZZ Release Omentum, Percutaneous Endoscopic Approach (ICD-10-PCS; 2017-08-30)
PROC: 0DTJ4ZZ Resection of Appendix, Percutaneous Endoscopic Approach (ICD-10-PCS; principal; 2017-08-30 17:30)
DX: K36 Other appendicitis (principal); Z68.41 Body mass index [BMI] 40.0-44.9, adult; K76.0 Fatty (change of) liver, not elsewhere classified; E66.01 Morbid (severe) obesity due to excess calories; K56.7 Ileus, unspecified; B37.3 Candidiasis of vulva and vagina; D50.0 Iron deficiency anemia secondary to blood loss (chronic); N92.1 Excessive and frequent menstruation with irregular cycle; N83.202 Unspecified ovarian cyst, left side; R07.89 Other chest pain; Z87.59 Personal history of other complications of pregnancy, childbirth and the puerperium
CPT/HCPCS: 36415; 36430; 71275; 74010; 74177; 76705; 76830; 76856; 80053; 81001; 82270; 82310; 82607; 82746; 83540; 83605; 83690; 83735; 83880; 84100; 84484; 85014; 85018; 85025; 85610; 85730; 86850; 86900; 86901; 86920; 87040; 87086; 88304; 93005; 96374; 96375; 96376; 97161; J0696; J1100; J1170; J1200; J1650; J1885; J2250; J2270; J2405; J2543; J2916; J3010; J3370; J3480; J7030; J7040; P9016; Q9967